=== PATIENT | female | born 1985 | race American Indian/Alaskan Native ===

== ENCOUNTER 2021-02-06 04:37 | Emergency (ER) | payer SELFPAY ==
[2021-02-06] MEDS ORDERED: SODIUM CHLORIDE 0.9% 1000 ML 1,000 ML IV ONE (04:58)
[2021-02-06] MEDS ORDERED: ONDANSETRON 4 MG/2 ML INJ IV ONE (04:58)
[2021-02-06] MEDS ORDERED: fentaNYL 100 MCG/2 ML INJ IV ONE (04:58)
--- NOTE | 2021-02-06 05:05 | Emergency Department Report ---
Chief Complaint: Abdominal Pain Stated Complaint: ABD PAIN Time Seen by Provider: 02/06/21 05:05 - HPI History of Present Illness: 35-year-old female presenting with a chief complaint of abdominal pain. The patient states for the past 2 to 3 days she has had initially intermittent right flank and right-sided abdominal pain but has now become constant. Patient admits to nausea. - Exam Vital Signs: Vital Signs 02/06/21 04:44 Temperature 99.4 F Pulse Rate 110 H Respiratory 20 Rate Blood Pressure 135/85 O2 Sat by Pulse 97 Oximetry MSE screening note: Focused history and physical exam performed. Due to findings the following was ordered: Analgesia CBC, CMP, lipase, UA, serum hCG CT abdomen pelvis IV fluids ED Disposition for MSE Condition: Stable Instructions: Abdominal Pain (ED)
[2021-02-06 05:33] LABS: Basophils # (Auto) 0.1 K/mm3 (0.0-0.1); Basophils % (Auto) 0.5 % (0.0-1.8); Eosinophils # (Auto) 0.1 K/mm3 (0.0-0.4); Eosinophils % (Auto) 0.6 % (0.0-4.3); Hematocrit 39.9 % (30.3-42.9); Hemoglobin 13.8 gm/dl (10.1-14.3); Lymphocytes # (Auto) 1.1 K/mm3 (1.2-5.4); Lymphocytes % (Auto) 9.5 % (13.4-35.0); Mean Corpuscular HGB Conc 35 % (30-34); Mean Corpuscular Volume 92 fl (79-97); Monocytes # (Auto) 1.3 K/mm3 (0.0-0.8); Monocytes % (Auto) 11.5 % (0.0-7.3); Platelet Count 339 K/mm3 (140-440); Red Blood Count 4.33 M/mm3 (3.65-5.03); Red Cell Distribution Width 12.8 % (13.2-15.2)
[2021-02-06 05:47] LABS: Alanine Aminotransferase 16 units/L (7-56); Albumin 4.7 g/dL (3.9-5); BUN/Creatinine Ratio 7; Blood Urea Nitrogen 8 mg/dL (7-17); Calcium 9.2 mg/dL (8.4-10.2); Hemolysis Index 20
[2021-02-06] MEDS ORDERED: MORPHINE 4 MG/1 ML INJ IV ONE (06:13)
--- NOTE | 2021-02-06 06:16 | Cat Scan Report ---
CT ABDOMEN AND PELVIS WITHOUT CONTRAST INDICATION: Right flank, right side abdominal pain. TECHNIQUE: Axial CT images were obtained through the abdomen and pelvis without IV contrast. All CT scans at [facility] location are performed using CT dose reduction for ALARA by means of automated exposure control. COMPARISON: None available. FINDINGS: LOWER CHEST: No significant abnormality. LIVER: No significant abnormality. GALLBLADDER: No significant abnormality. BILE DUCTS: No significant abnormality. PANCREAS: No significant abnormality. SPLEEN: No significant abnormality. ADRENALS: No significant abnormality. RIGHT KIDNEY and URETER: No significant abnormality. LEFT KIDNEY and URETER: No significant abnormality. STOMACH and SMALL BOWEL: No significant abnormality. COLON: No significant abnormality. APPENDIX: Normal. PERITONEUM: No free fluid. No free air. No fluid collection. LYMPH NODES: No significant adenopathy. AORTA and ARTERIES: No significant abnormality. IVC and VEINS: No significant abnormality. URINARY BLADDER: No significant abnormality. REPRODUCTIVE ORGANS: 4.6 cm right ovarian cyst with dependent hemorrhage. Simple 2.3 cm left ovarian cyst ADDITIONAL FINDINGS: None. SKELETAL SYSTEM: No significant abnormality. IMPRESSION: 1. Hemorrhagic 4.6 cm right ovarian cyst with small amount of adjacent free pelvic fluid 2. Simple 2.3 cm left ovarian follicular cyst 3. No urinary tract calculi or hydronephrosis Signer Name: Jacob Bronson MD Signed: 02/06/2021 6:11 AM Workstation Name: [id number]
--- NOTE | 2021-02-06 06:33 | Emergency Department Report ---
ED Abdominal Pain HPI - General Chief Complaint: Abdominal Pain Stated Complaint: ABD PAIN Time Seen by Provider: 02/06/21 05:05 Source: patient Mode of arrival: Ambulatory Limitations: No Limitations - History of Present Illness Initial Comments: Patient is a 35-year-old F Palestinian female with past medical history of polycystic ovarian syndrome ectopic status post left fallopian tube removal who is presenting with 3 days of worsening abdominal pain. States she has pain in the suprapubic region right lower quadrant right upper quadrant pain and right flank. States the pain is worsening over the last several days. States now she actually has pain also when she sits on her tailbone as well. [place] some dysuria today as well. Pain estimated at a 7 out of 10 in severity. She is accompanied with nausea but no vomiting or diarrhea. States she has some subjective chills but no objective fevers. She denies any cough cold congestion. Severity scale (0 -10): 10 - Related Data Previous Rx's Medication Instructions Recorded Last Taken Type Acetaminophen/Codeine 1 tab PO Q6H PRN #20 tab 01/13/15 Unknown Rx [Acetaminophen-Codeine #3 TAB] Acyclovir [Zovirax Cap] 200 mg PO 5XD 5 Days cap 01/13/15 Unknown Rx Clindamycin 2% [Clindamycin 2% VAG 1 applicatio VG TID 7 Days cream 01/13/15 Unknown Rx CREAM] metroNIDAZOLE [Flagyl] 500 mg PO BID #14 tablet 01/13/15 Unknown Rx Acyclovir [Zovirax Cap] 400 mg PO TID 7 Days cap 05/06/15 Unknown Rx traMADoL [Ultram] 50 mg PO Q6HR PRN #20 tablet 05/06/15 Unknown Rx Fluconazole (Nf) [Diflucan TAB] 150 mg PO ONCE #2 tablet 08/07/15 Unknown Rx Butalb/Acetaminophen/Caffeine 1 cap PO Q8HR PRN #20 cap 06/16/20 Unknown Rx [Fioricet 50-300-40 mg CAP] Ondansetron [Zofran Odt] 4 mg PO Q8HR #10 tab.rapdis 02/06/21 Unknown Rx oxyCODONE /ACETAMINOPHEN [Percocet 1 tab PO Q6HR PRN #10 tablet 02/06/21 Unknown Rx 5/325] Allergies Allergy/AdvReac Type Severity Reaction Status Date / Time ibuprofen Allergy Swelling Verified 02/06/21 04:44 ED Review of Systems ROS: Stated complaint: ABD PAIN Other details as noted in HPI Comment: All other systems reviewed and negative ED Past Medical Hx - Past Medical History Hx Diabetes: Yes (BORDERLINE) Additional medical history: ectopic , polycystic ovarian syndrome - Surgical History Additional Surgical History: Left fallopian tube removed. - Social History Smoking Status: Never Smoker Substance Use Type: None - Medications Home Medications: Home Medications Medication Instructions Recorded Confirmed Last Taken Type Acetaminophen/Codeine 1 tab PO Q6H PRN #20 tab 01/13/15 Unknown Rx [Acetaminophen-Codeine #3 TAB] Acyclovir [Zovirax Cap] 200 mg PO 5XD 5 Days cap 01/13/15 Unknown Rx Clindamycin 2% [Clindamycin 2% VAG 1 applicatio VG TID 7 Days cream 01/13/15 Unknown Rx CREAM] metroNIDAZOLE [Flagyl] 500 mg PO BID #14 tablet 01/13/15 Unknown Rx Acyclovir [Zovirax Cap] 400 mg PO TID 7 Days cap 05/06/15 Unknown Rx traMADoL [Ultram] 50 mg PO Q6HR PRN #20 tablet 05/06/15 Unknown Rx Fluconazole (Nf) [Diflucan TAB] 150 mg PO ONCE #2 tablet 08/07/15 Unknown Rx Butalb/Acetaminophen/Caffeine 1 cap PO Q8HR PRN #20 cap 06/16/20 Unknown Rx [Fioricet 50-300-40 mg CAP] Ondansetron [Zofran Odt] 4 mg PO Q8HR #10 tab.rapdis 02/06/21 Unknown Rx oxyCODONE /ACETAMINOPHEN [Percocet 1 tab PO Q6HR PRN #10 tablet 02/06/21 Unknown Rx 5/325] ED Physical Exam - General Limitations: No Limitations General appearance: alert, in distress - Head Head exam: Present: atraumatic, normocephalic - Eye Eye exam: Present: normal appearance, PERRL, EOMI - ENT ENT exam: Present: mucous membranes moist - Neck Neck exam: Present: normal inspection - Respiratory Respiratory exam: Present: normal lung sounds bilaterally. Absent: respiratory distress, wheezes, rales, rhonchi - Cardiovascular Cardiovascular Exam: Present: regular rate, normal rhythm, normal heart sounds. Absent: systolic murmur, diastolic murmur, rubs, gallop - GI/Abdominal GI/Abdominal exam: Present: soft, tenderness (Suprapubic and right lower quadrant tenderness palpation), normal bowel sounds. Absent: distended, guarding, rebound, rigid - Extremities Exam Extremities exam: Present: normal inspection - Back Exam Back exam: Present: normal inspection - Neurological Exam Neurological exam: Present: alert, oriented X3 - Psychiatric Psychiatric exam: Present: normal affect, normal mood - Skin Skin exam: Present: warm, dry, intact, normal color. Absent: rash ED Course Vital Signs 02/06/21 02/06/21 04:44 06:30 Temperature 99.4 F Pulse Rate 110 H 91 H Respiratory 20 15 Rate Blood Pressure 135/85 O2 Sat by Pulse 97 Oximetry ED Medical Decision Making - Lab Data Result diagrams: 02/06/21 05:10 02/06/21 05:10 - Radiology Data Patient: REECE ESCOBRA MR#: [id number] : 1985 Acct:[id number] Age/Sex: 35 / F ADM Date: 02/06/21 Loc: ED Attending Dr: Ordering Physician: SHERRY FORBES MD Date of Service: 02/06/21 Procedure(s): CT abdomen pelvis wo con Accession Number(s): [id number] cc: SHERRY FORBES MD CT ABDOMEN AND PELVIS WITHOUT CONTRAST INDICATION: Right flank, right side abdominal pain. TECHNIQUE: Axial CT images were obtained through the abdomen and pelvis without IV contrast. All CT scans at this location are performed using CT dose reduction for ALARA by means of automated exposure control. COMPARISON: None available. FINDINGS: LOWER CHEST: No significant abnormality. LIVER: No significant abnormality. GALLBLADDER: No significant abnormality. BILE DUCTS: No significant abnormality. PANCREAS: No significant abnormality. SPLEEN: No significant abnormality. ADRENALS: No significant abnormality. RIGHT KIDNEY and URETER: No significant abnormality. LEFT KIDNEY and URETER: No significant abnormality. STOMACH and SMALL BOWEL: No significant abnormality. COLON: No significant abnormality. APPENDIX: Normal. PERITONEUM: No free fluid. No free air. No fluid collection. LYMPH NODES: No significant adenopathy. AORTA and ARTERIES: No significant abnormality. IVC and VEINS: No significant abnormality. URINARY BLADDER: No significant abnormality. REPRODUCTIVE ORGANS: 4.6 cm right ovarian cyst with dependent hemorrhage. Simple 2.3 cm left ovarian cyst ADDITIONAL FINDINGS: None. SKELETAL SYSTEM: No significant abnormality. IMPRESSION: 1. Hemorrhagic 4.6 cm right ovarian cyst with small amount of adjacent free pelvic fluid 2. Simple 2.3 cm left ovarian follicular cyst 3. No urinary tract calculi or hydronephrosis Signer Name: Jacob Bronson MD Signed: 02/06/2021 6:11 AM Workstation Name: [id number] Transcribed By: TL Dictated By: Jacob Bronson MD Electronically Authenticated By: Jacob Bronson MD Signed Date/Time: 02/06/21 0611 Critical care attestation.: If time is entered above; I have spent that time in minutes in the direct care of this critically ill patient, excluding procedure time. ED Disposition Clinical Impression: Hemorrhagic ovarian cyst Disposition: - TO HOME OR SELFCARE Is pt being admited?: No Does the pt Need Aspirin: No Condition: Stable Instructions: Abdominal Pain (ED), Ovarian Cyst, [id number] Referrals: MICHELE ACOSTA MD [Staff Physician] - 3-5 Days Time of Disposition: 06:57
[2021-02-06 07:09] VITALS: BP 134/73
== END 2021-02-06 07:09 | disposition home or self-care (01) ==
LOC: ED 04:37
DX: N83.209 Unspecified ovarian cyst, unspecified side (principal); Z79.899 Other long term (current) drug therapy; Z88.6 Allergy status to analgesic agent; Z98.890 Other specified postprocedural states
CPT/HCPCS: 36415; 74176; 80053; 83690; 84703; 85025; 96361; 96374; 96375; 99284; J2270; J2405; J3010; J7030

== ENCOUNTER 2021-02-08 09:10 | Inpatient (IN) | payer OTHER ==
[2021-02-08] MEDS ORDERED: SODIUM CHLORIDE 0.9% 500 ML 500 ML IV ONE ×2 (09:18→11:51)
[2021-02-08 09:41] LABS: Hematocrit 36.3 % (30.3-42.9); Hemoglobin 12.5 gm/dl (10.1-14.3); Mean Corpuscular HGB Conc 34 % (30-34); Mean Corpuscular Volume 92 fl (79-97); Platelet Count 287 K/mm3 (140-440); Red Blood Count 3.94 M/mm3 (3.65-5.03); Red Cell Distribution Width 12.9 % (13.2-15.2)
[2021-02-08 09:57] LABS: Alanine Aminotransferase 9 units/L (7-56); Albumin 3.8 g/dL (3.9-5); BUN/Creatinine Ratio 9; Blood Urea Nitrogen 8 mg/dL (7-17); Calcium 9.3 mg/dL (8.4-10.2); Hemolysis Index 1
--- NOTE | 2021-02-08 10:03 | XRay Report ---
CHEST 1 VIEW 02/08/2021 8:52 AM INDICATION / CLINICAL INFORMATION: possible Sepsis. COMPARISON: None available. FINDINGS: SUPPORT DEVICES: None. HEART / MEDIASTINUM: No significant abnormality. LUNGS / PLEURA: Mild linear pulmonary opacity in the right lung base. No pleural effusion. No pneumot horax. ADDITIONAL FINDINGS: No significant additional findings. IMPRESSION: 1. Linear opacity right lung base may represent atelectasis versus infectious process given the patie nt's clinical history. Signer Name: Nicanor Hughes MD Signed: 02/08/2021 9:58 AM Workstation Name: [id number]
[2021-02-08] MEDS ORDERED: ACETAMINOPHEN 500 MG TAB PO ONE (10:18)
[2021-02-08] MEDS ORDERED: MORPHINE 2 MG/1 ML INJ IV ONE (10:25)
--- NOTE | 2021-02-08 10:30 | Emergency Department Report ---
ED Abdominal Pain HPI - General Chief Complaint: Abdominal Pain Stated Complaint: OVARIAN CYST/SEEN HER SATURDAY FOR SAME Time Seen by Provider: 02/08/21 10:12 Source: patient Mode of arrival: Wheelchair Limitations: No Limitations - History of Present Illness Initial Comments: 35-year-old female presents to ED with abdominal pain. Patient presented to ED 2 days ago with right lower quadrant pain. She was diagnosed with a hemorrhagic ovarian cyst. Patient denies any vaginal bleeding or discharge at that time. Patient states last night she began spiking a fever of 102 degrees. Patient also noticed a white, foul-smelling vaginal discharge. Patient states since this morning, the vaginal discharge is now bloody. Patient states pain is more generalized over her abdomen. Upon discharge, patient states she was advised to follow-up with CUSTOMS AND IMMIGRATION OFFICER. States she did schedule an appointment with a new CD MIXER HELPER but appointment is not until February 23. MD Complaint: abdominal pain -: days(s) (3) Location: diffuse Radiation: none Migration to: no migration Severity: severe Severity scale (0 -10): 8 Quality: cramping, sharp Consistency: constant Improves With: nothing Worsens With: movement Associated Symptoms: fever - Related Data Home Medications Medication Instructions Recorded Confirmed Last Taken No Known Home Medications [No 02/08/21 02/08/21 Unknown Reported Home Medications] Allergies Allergy/AdvReac Type Severity Reaction Status Date / Time ibuprofen Allergy Swelling Verified 02/08/21 09:56 ED Review of Systems ROS: Stated complaint: OVARIAN CYST/SEEN HER SATURDAY FOR SAME Other details as noted in HPI Comment: All other systems reviewed and negative Constitutional: fever Gastrointestinal: abdominal pain. denies: nausea, vomiting Genitourinary: discharge ED Past Medical Hx - Past Medical History Hx Diabetes: Yes (BORDERLINE) Additional medical history: ectopic , polycystic ovarian syndrome - Surgical History Additional Surgical History: Left fallopian tube removed. - Social History Smoking Status: Never Smoker Substance Use Type: None - Medications Home Medications: Home Medications Medication Instructions Recorded Confirmed Last Taken Type No Known Home Medications [No 02/08/21 02/08/21 Unknown History Reported Home Medications] ED Physical Exam - General Limitations: No Limitations General appearance: alert, in no apparent distress - Head Head exam: Present: atraumatic, normocephalic - Eye Eye exam: Present: normal appearance, EOMI - ENT ENT exam: Present: mucous membranes moist - Neck Neck exam: Present: normal inspection - Respiratory Respiratory exam: Present: normal lung sounds bilaterally. Absent: respiratory distress - Cardiovascular Cardiovascular Exam: Present: normal rhythm, tachycardia - GI/Abdominal GI/Abdominal exam: Present: soft, tenderness (diffuse abdomen), guarding. Absent: distended - External exam: Present: normal external exam Speculum exam: Present: vaginal discharge (whitish), vaginal bleeding (moderate) Bi-manual exam: Present: cervical motion tendernes, adnexal tenderness, uterine tenderness - Extremities Exam Extremities exam: Present: normal inspection - Neurological Exam Neurological exam: Present: alert, oriented X3 - Psychiatric Psychiatric exam: Present: normal affect, normal mood - Skin Skin exam: Present: warm, dry, intact, normal color ED Course Vital Signs 02/08/21 02/08/21 02/08/21 09:11 09:49 12:02 Temperature 101.4 F H Pulse Rate 125 H 113 H 101 H Respiratory 26 H 18 18 Rate Blood Pressure 125/73 Blood Pressure 134/71 111/62 [Right] O2 Sat by Pulse 96 97 99 Oximetry 02/08/21 12:58 Temperature 98.1 F Pulse Rate 97 H Respiratory 17 Rate Blood Pressure Blood Pressure 130/95 [Right] O2 Sat by Pulse 99 Oximetry - Consultations Consultation #1: 02/08/21 12:[address] Branch. Recommends adding clindamycin 900 mg IV. States she will admit the patient to the mother-baby. ED Medical Decision Making - Lab Data Result diagrams: 02/08/21 09:22 02/08/21 09:22 - EKG Data -: EKG Interpreted by Ut EKG shows normal: sinus rhythm, axis, intervals, QRS complexes, ST-T waves Rate: normal - EKG Data Interpretation: no acute changes - Radiology Data Radiology results: report reviewed, image reviewed - Medical Decision Making 35-year-old female presents to ED with abdominal pain. Patient was seen 2 days ago, underwent noncontrast CT scan which showed hemorrhagic ovarian cyst. Patient returns today after developing fever. WBCs currently increased from 11 to 22. Lactic acid normal. Patient has CMT, adnexal, and uterine tenderness. Vaginal bleeding on exam. CT scan today with contrast shows 9 cm right tubo- ovarian abscess. IV Zosyn and clindamycin given. Fever and tachycardia improved. Pain improved following morphine. Patient will be admitted to certified dialysis technician, Dr. Branch. - Differential Diagnosis TOA, PID, cyst, UTI Critical care attestation.: If time is entered above; I have spent that time in minutes in the direct care of this critically ill patient, excluding procedure time. ED Disposition Clinical Impression: Right tubo-ovarian abscess, Sepsis Disposition: OP ADMIT IP TO THIS HOSP Is pt being admited?: Yes Condition: Stable Time of Disposition: 12:25
[2021-02-08] MEDS ORDERED: PIPERACIL/TAZOBACTA 4.5/NS 100 4.5 GM/100 ML VIAL IV ONE (10:33)
[2021-02-08 12:01] LABS: INR 1.14 (0.87-1.13)
--- NOTE | 2021-02-08 12:17 | Cat Scan Report ---
CT ABDOMEN AND PELVIS WITH CONTRAST INDICATION / CLINICAL INFORMATION: MAIN. Fever and diffuse abdominal pain. Right hemorrhagic cyst. TECHNIQUE: Axial CT images were obtained through the abdomen and pelvis after IV contrast. All CT scans at this location are performed using CT dose reduction for ALARA by means of automated exposure control. COMPARISON: CT abdomen and pelvis without contrast dated 02/06/2021 FINDINGS: LOWER CHEST: Interval development of moderate bibasilar linear atelectasis. LIVER: Tiny hypoattenuating lesion right hepatic lobe stable since prior exam. GALLBLADDER: No significant abnormality. BILE DUCTS: No significant abnormality. PANCREAS: No significant abnormality. SPLEEN: No significant abnormality. ADRENALS: No significant abnormality. RIGHT KIDNEY / URETER: No significant abnormality. LEFT KIDNEY / URETER: No significant abnormality. STOMACH / SMALL BOWEL: No significant abnormality. COLON: No significant abnormality. APPENDIX: No significant abnormality. PERITONEUM: Mild free fluid in the pelvis. No free air. No complex fluid collection. LYMPH NODES: No significant adenopathy. AORTA / ARTERIES: No significant abnormality. IVC / VEINS: No significant abnormality. URINARY BLADDER: No significant abnormality. REPRODUCTIVE ORGANS: 2.7 cm uterine fibroid is noted. Complex fluid filled and dilated tubular struct ure in the right adnexa measuring 9 cm with surrounding inflammatory changes and fat stranding. This structure was visualized on the prior exam, however incompletely characterized without contrast on . Simple left ovarian cyst measures 3.2 cm. ADDITIONAL FINDINGS: None. SKELETAL SYSTEM: No significant abnormality. No aggressive osseous lesion. IMPRESSION: 1. Right tubo-ovarian abscess measures 9 cm with significant surrounding inflammatory changes and fat stranding. Correlate for clinical history of pelvic infiltrative disease. 2. Interval development of moderate bibasilar atelectasis. Signer Name: Nicanor Hughes MD Signed: 02/08/2021 12:12 PM Workstation Name: [id number]
[2021-02-08 12:49] LABS: Bilirubin,Urine NEG (Negative); Blood,Urine LG (Negative); Color,Urine Amber (Yellow); Mucus,Urine FEW /HPF; Urobilinogen,Urine < 2.0 mg/dL (<2.0)
[2021-02-08 12:55] LABS: RBC,Urine > 182.0 /HPF (0.0-6.0)
--- NOTE | 2021-02-08 13:40 | History and Physical Report ---
History of Present Illness Date of examination: 02/08/21 Date of admission: 02/08/21 12:26 Chief complaint: Abdominal pain History of present illness: 35-year-old -0-1-0 with right-sided abdominal pain for the last 72 hours. Patient had a work-up [facility] on Saturday with a right hemorrhagic cyst at 4.5 cm, she was discharged home and in the last 24 hours has progressed to nausea vomiting fever 201.4 and chills. Work-up in the emergency room today revealed a right tubo-ovarian abscess at approximately 9 cm per verbal read. Patient admits to having history of a right ectopic and a history of left hydrosalpinx. She has had extensive work-up at [facility] to include 2 laparoscopies. She she admits to having operative laparoscopy with left salpingectomy for an ectopic , and a diagnostic laparoscopy for pelvic pain with a diagnosis of right uterine fibroid. I do not have access to op report and medical records. Patient also admits to a whitish-greenish vaginal discharge that is blood- tinged. Patient's past medical history significant for HIV. She admits her last viral load was undetectable 1 month ago. She is on antiretroviral medication which her is bringing to the hospital. I written a communication order for her to continue her home HIV medications. Past History Past Medical History: other (HIV) Past Surgical History: other (Laparoscopy x2 with right salpingectomy) PAPER COUNTER History: fibroids, HIV Family/Genetic History: none Social history: Medications and Allergies Allergies Allergy/AdvReac Type Severity Reaction Status Date / Time ibuprofen Allergy Swelling Verified 02/08/21 09:56 Home Medications Medication Instructions Recorded Confirmed Last Taken Type No Known Home Medications [No 02/08/21 02/08/21 Unknown History Reported Home Medications] Active Meds: HIV antiretroviral medications from home Review of Systems All systems: negative (Fever chills abdominal pain vaginal discharge with nausea vomiting) - Vital Signs Vital signs: Vital Signs Temp Pulse Resp BP Pulse Ox 101.4 F H 125 H 26 H 125/73 96 02/08/21 09:11 02/08/21 09:11 02/08/21 09:11 02/08/21 09:11 02/08/21 09:11 Temp Pulse Resp BP Pulse Ox 98.1 F 97 H 17 130/95 99 02/08/21 12:58 02/08/21 12:58 02/08/21 12:58 02/08/21 12:58 02/08/21 12:58 - Physical Exam Breasts: Positive: normal Cardiovascular: Other (Tachycardia) Lungs: Positive: Clear to auscultation Abdomen: Positive: normal appearance, soft, tenderness, normal bowel sounds (Patient has tenderness in the right lower quadrant to deep palpation with mild peritoneal signs) Genitourinary (Female): Positive: normal external genitalia Vagina: Positive: normal moisture, discharge, other (Pelvic exam done by ER physician noted for positive discharge) Uterus: Positive: normal size Extremities: Positive: normal Deep Tendon Reflex Grade: Normal +2 Results Result Diagrams: 02/08/21 09:22 02/08/21 09:22 Abnormal lab results 02/08/21 02/08/21 02/08/21 Range/Units 09:22 09:22 09:22 WBC 22.8 H (4.5-11.0) K/mm3 RDW 12.9 L (13.2-15.2) % INR 1.14 H (0.87-1.13) VBG pH (7.320-7.420) Sodium 134 L (137-145) mmol/L Glucose 151 H (65-100) mg/dL Albumin 3.8 L (3.9-5) g/dL Ur Specific [place] (1.003-1.030) Urine WBC (Auto) (0.0-6.0) /HPF U Epithel Cells (Auto) (0-13.0) /HPF 02/08/21 02/08/21 Range/Units 09:22 12:01 WBC (4.5-11.0) K/mm3 RDW (13.2-15.2) % INR (0.87-1.13) VBG pH 7.448 H (7.320-7.420) Sodium (137-145) mmol/L Glucose (65-100) mg/dL Albumin (3.9-5) g/dL Ur Specific [place] 1.046 H (1.003-1.030) Urine WBC (Auto) 8.0 H (0.0-6.0) /HPF U Epithel Cells (Auto) 20.0 H (0-13.0) /HPF All other labs normal. Assessment and Plan Right tubo-ovarian abscess with pelvic pain HIV Plan Clear liquid diet Triple antibiotics Morphine and oral pain medicine as needed HIV antiretrovirals to be taken from home medication, to bring them in Antibiotics for 24 hours if no improvement plan for operative management Plan of care was discussed with patient We will attempt to get medical records from [place] Branch MD
[2021-02-08] MEDS ORDERED: GENTAMICIN/NS 80 MG/100 ML 100 ML IV SCH (14:00)
[2021-02-08 15:00] LABS: Amphetamine Screen,Urine Negative; Benzodiazepines Screen,Urine Negative; Cannabinoid Screen,Urine Negative; Methadone Screen,Urine Negative
[2021-02-08] MEDS ORDERED: GENTAMICIN/NS 120MG/100ML 120 MG/100 ML BAG IV SCH (15:00)
[2021-02-08 15:12] LABS: Cocaine Screen,Urine Positive; Opiate Screen,Urine Positive
[2021-02-08] MEDS: MORPHINE 4 MG/1 ML INJ IV PRN ×2 (15:32→21:15)
[2021-02-08 16:03] LABS: RBC Morphology Normal; Total Cells Counted 100
[2021-02-08] MEDS: ACETAMINOPHEN 500 MG TAB PO PRN ×2 (17:47→23:26)
[2021-02-08] MEDS: D5W/LACTATED RINGERS 1,000 ML IV SCH (23:25)
[2021-02-09] MEDS: MORPHINE 4 MG/1 ML INJ IV PRN ×3 (01:43→16:09)
[2021-02-09] MEDS: GENTAMICIN 400 MG in SODIUM CHLORIDE 0.9% 100 ML IV SCH (10:14)
--- NOTE | 2021-02-09 11:17 | Electrocardiograph Report ---
[facility], [place] Test Date: 2021-02-08 Test Time: 10:06:16 Pat Name: REECE ESCOBAR Department: Room: 2103 Gender: F Inspector Dials: DERREK : 1985 Requested By: ELIZABETH LUCIANO Order Number: [id number] Reading MD: Phani Mejia Measurements Intervals [place] Rate: 105 P: 69 WI: 131 QRS: 45 QRSD: 79 T: 42 QT: 295 QTc: 391 Interpretive Statements Sinus tachycardia No previous ECG available for comparison Electronically Signed On 02-09-2021 8:17:12 PDT by Phani Mejia
[2021-02-09 11:38] LABS: Alanine Aminotransferase 11 units/L (7-56); Albumin 3.4 g/dL (3.9-5); BUN/Creatinine Ratio 5; Blood Urea Nitrogen 5 mg/dL (7-17); Calcium 8.8 mg/dL (8.4-10.2); Hemolysis Index 2
[2021-02-09 11:56] LABS: Erythrocyte Sedimentation Rate 53 mm/Hr (0-20)
[2021-02-09 12:01] LABS: Basophils % (Auto) 0.2 % (0.0-1.8); Eosinophils % (Auto) 0.2 % (0.0-4.3); Hematocrit 32.3 % (30.3-42.9); Lymphocytes # (Auto) 1.8 K/mm3 (1.2-5.4); Lymphocytes % (Auto) 11.1 % (13.4-35.0); Mean Corpuscular HGB Conc 34 % (30-34); Mean Corpuscular Volume 93 fl (79-97); Monocytes # (Auto) 1.6 K/mm3 (0.0-0.8); Monocytes % (Auto) 9.8 % (0.0-7.3); Platelet Count 287 K/mm3 (140-440); Red Blood Count 3.47 M/mm3 (3.65-5.03); Red Cell Distribution Width 12.8 % (13.2-15.2)
[2021-02-09] MEDS: ONDANSETRON 4 MG/2 ML INJ IV PRN ×2 (12:56→17:32)
[2021-02-09] MEDS: D5W/LACTATED RINGERS 1,000 ML IV SCH ×2 (12:57→20:36)
--- NOTE | 2021-02-09 13:31 | Progress Note ---
Assessment and Plan Tubo-ovarian abscess Patient has improved with a decreasing leukocytosis and bandemia Plan to continue current triple antibiotic regimen with pain medicine as needed Zofran for nausea Will obtain medical records from [place] to compare CT scans. Patient was told she had a history of a right hydrosalpinx and has had persistent complex cyst in the past. While this appears to be new onset right-sided tubo-ovarian abscess, patient may have a chronic infectious process. HIV stable We will continue to monitor closely Nestor Branch MD Subjective - Subjective Date of service: 02/09/21 Interval history: 35-year-old -0-1-0 with right-sided abdominal pain with suspicion for right tubo-ovarian abscess on CT scan of admission. At bedside patient has nausea vomiting related to her IV antibiotics. She indicates that her pain is a 7 out of 10 and last received morphine at 730 this morning She is otherwise awake alert and oriented x3 and answering questions appropriately She is on a clear liquid diet until just recently was tolerating p.o. appropriately. Patient has not had a bowel movement in over 4 days. Patient reports: pain poorly controlled, nauseated Objective - Vital Signs Latest vital signs: Vital Signs Temp Pulse Resp BP BP Pulse Ox 02/09/21 08:00 97.9 F 110 H 18 116/76 95 02/09/21 07:45 20 02/09/21 01:01 102.8 F H 111 H 20 118/65 95 02/08/21 20:45 102.8 F H 113 H 20 126/64 99 02/08/21 16:24 100.4 F H 111 H 20 109/71 100 02/08/21 13:45 98.6 F 105 H 20 115/65 Intake and Output 02/08/21 02/09/21 02/09/21 23:59 07:59 15:59 Intake Total 840 1000 Output Total 200 300 Balance 640 700 Intake: IV 1000 D5lr 1,000 ml @ 125 mls/ 1000 hr IV [facility] Rx#: [id number] Oral 600 Intake, Free Water 240 Output: Urine 200 300 Void 200 300 Other: Total, Intake Amount 120 Total, Output Amount 200 300 Voiding Method Bedside Commode Bedside Commode # Voids Void 2 - Exam Breasts: Present: deferred Cardiovascular: Present: Other (Tachycardia) Lungs: Present: Clear to auscultation Abdomen: Present: soft, tenderness, guarding Extremities: Present: normal Deep Tendon Reflex Grade: Normal but brisk +3 - Labs Labs: Abnormal lab results 02/08/21 02/08/21 02/09/21 Range/Units 09:22 13:44 10:49 WBC 16.4 H (4.5-11.0) K/mm3 RBC 3.47 L (3.65-5.03) M/mm3 RDW 12.8 L (13.2-15.2) % Lymph % (Auto) 11.1 L (13.4-35.0) % [place] % (Auto) 9.8 H (0.0-7.3) % [place] # (Auto) 1.6 H (0.0-0.8) K/mm3 Seg Neutrophils % 78.7 H (40.0-70.0) % Seg Neuts % (Manual) 87.0 H (40.0-70.0) % Lymphocytes % (Manual) 6.0 L (13.4-35.0) % Seg Neutrophils # 12.9 H (1.8-7.7) K/mm3 Seg Neutrophils # Man 19.8 H (1.8-7.7) K/mm3 Monocytes # (Manual) 1.6 H (0.0-0.8) K/mm3 Sodium (137-145) mmol/L Potassium (3.6-5.0) mmol/L BUN (7-17) mg/dL Glucose (65-100) mg/dL Lactic Acid 0.60 L (0.7-2.0) mmol/L Albumin (3.9-5) g/dL 02/09/21 Range/Units 10:49 WBC (4.5-11.0) K/mm3 RBC (3.65-5.03) M/mm3 RDW (13.2-15.2) % Lymph % (Auto) (13.4-35.0) % [place] % (Auto) (0.0-7.3) % [place] # (Auto) (0.0-0.8) K/mm3 Seg Neutrophils % (40.0-70.0) % Seg Neuts % (Manual) (40.0-70.0) % Lymphocytes % (Manual) (13.4-35.0) % Seg Neutrophils # (1.8-7.7) K/mm3 Seg Neutrophils # Man (1.8-7.7) K/mm3 Monocytes # (Manual) (0.0-0.8) K/mm3 Sodium 134 L (137-145) mmol/L Potassium 3.5 L (3.6-5.0) mmol/L BUN 5 L (7-17) mg/dL Glucose 125 H (65-100) mg/dL Lactic Acid (0.7-2.0) mmol/L Albumin 3.4 L (3.9-5) g/dL
[2021-02-09] MEDS: ACETAMINOPHEN 500 MG TAB PO PRN ×2 (13:55→20:37)
[2021-02-09] MEDS: HYDROcodone/ACETAMINOPHEN 10-325MG TAB PO PRN (17:31)
[2021-02-10] MEDS: MORPHINE 4 MG/1 ML INJ IV PRN ×4 (03:02→20:11)
[2021-02-10] MEDS: ONDANSETRON 4 MG/2 ML INJ IV PRN ×3 (04:12→20:10)
[2021-02-10] MEDS: D5W/LACTATED RINGERS 1,000 ML IV SCH ×2 (05:30→23:51)
[2021-02-10] MEDS: ACETAMINOPHEN 500 MG TAB PO PRN (05:31)
[2021-02-10 08:49] LABS: Basophils % (Auto) 0.3 % (0.0-1.8); Eosinophils % (Auto) 0.1 % (0.0-4.3); Hematocrit 30.8 % (30.3-42.9); Hemoglobin 10.4 gm/dl (10.1-14.3); Lymphocytes # (Auto) 1.4 K/mm3 (1.2-5.4); Lymphocytes % (Auto) 10.3 % (13.4-35.0); Mean Corpuscular HGB Conc 34 % (30-34); Mean Corpuscular Volume 92 fl (79-97); Monocytes # (Auto) 1.6 K/mm3 (0.0-0.8); Monocytes % (Auto) 11.8 % (0.0-7.3); Platelet Count 309 K/mm3 (140-440); Red Blood Count 3.34 M/mm3 (3.65-5.03); Red Cell Distribution Width 12.5 % (13.2-15.2)
[2021-02-10] MEDS: GENTAMICIN 400 MG in SODIUM CHLORIDE 0.9% 100 ML IV SCH (10:14)
[2021-02-10] MEDS: HYDROcodone/ACETAMINOPHEN 10-325MG TAB PO PRN (13:49)
[2021-02-10] MEDS: AMPICILLIN/NS 2 GM/100 ML 2 GM/100 ML BAG IV SCH ×2 (16:30→23:50)
--- NOTE | 2021-02-10 18:31 | Event Note ---
Date: 02/10/[address] Xiong about the patient with tubo-ovarian abscess and hx of pelvic surgeries and hx of HIV. No clinical indication for general surgery consultation. Will be available to assist in OR when scheduled.
--- NOTE | 2021-02-10 19:33 | Progress Note ---
Assessment and Plan HD#3 TOA with inadequate coverage, however leucocytosis much improved; HIV+; Substance abuse with cocaine 1. Discussed with Dr. Branch her sign out who believed pt was on amp/gent/clinda; antibiotic meds adjusted with addition of ampicillin 2. Consult done to hospitalist for HIV mgt and meds that pt states she has been taking and viral load undetectable 3. Discussed at length plan of care for interventional radiology to drain abcess preferably if pt stable, but this service is only available during the week and order placed; however if symptoms worsen or patient shows signs of acute abdomen and/or sepsis, surgical management for drainage of abcess will be done 4. Consult done to general surgery to assist with pt having multiple surgeries in the past and anticipate extensive scarring. Will add minilap with drainage of TOA in am if condition worsening. Lab values show improvement with WBC now 13 without bandemia and blood culture negative 5. Serial exams during the night All questions encouraged and answered Subjective Date of service: 02/10/21 Principal diagnosis: HD#3 with TOA Interval history: pt denies vomiting but still has intermittent nausea. Pt believes she feels a little better but has to lie on her side for comfort. Partner to bedside believes the patient is not doing better and conversed with her about needing surgery. pt wants to wait and get drainage prior to surgery if possible. Pt has pressure when she voids or passes gas. pt has not had BM. Nurse states pt had only one fever today. nurse also called me stating pt was only on gent and clinda and no other antibiotic med. Objective - Constitutional Vitals: Vital Signs - 12hr 02/10/21 02/10/21 02/10/21 09:08 13:24 16:43 Temperature 98.8 F 100.0 F H 99.0 F Pulse Rate 98 H 103 H 90 Respiratory 18 18 18 Rate Blood Pressure 118/77 137/77 125/76 O2 Sat by Pulse 93 94 97 Oximetry General appearance: Present: no acute distress - Respiratory Respiratory effort: other (pt has heavy breathing when she turns in bed and repositions herself) - Breasts Breasts: normal - Cardiovascular Rhythm: regular Extremities: no ischemia - Gastrointestinal General gastrointestinal: Present: tender (diffusely without rebound) - Genitourinary Female genitourinary: other (perineal pad with scant dark brown secretion withou t odor) - Neurologic Neurologic: moves all extremities - Psychiatric Psychiatric: cooperative - Labs CBC & Chem 7: 02/10/21 07:27 02/09/21 10:49 Labs: Abnormal lab results 02/10/21 02/10/21 Range/Units 07:27 07:27 WBC 13.7 H (4.5-11.0) K/mm3 RBC 3.34 L (3.65-5.03) M/mm3 RDW 12.5 L (13.2-15.2) % Lymph % (Auto) 10.3 L (13.4-35.0) % [place] % (Auto) 11.8 H (0.0-7.3) % [place] # (Auto) 1.6 H (0.0-0.8) K/mm3 Seg Neutrophils % 77.5 H (40.0-70.0) % Seg Neutrophils # 10.6 H (1.8-7.7) K/mm3 C-Reactive Protein 31.70 H (0.00-1.30) mg/dL Medications & Allergies - Medications Allergies/Adverse Reactions: Allergies ibuprofen Allergy (Verified 02/08/21 09:56) Swelling Home Medications: Home Medications Medication Instructions Recorded Confirmed Last Taken Type No Known Home Medications [No 02/08/21 02/10/21 Unknown History Reported Home Medications] Active Medications: Generic Name Dose Route Start Last Admin Trade Name Reynaldoq PRN Reason Stop Dose Admin Acetaminophen 1,000 mg 02/08/21 14:00 02/10/21 05:31 Acetaminophen 500 Mg Tab PO 1,000 mg Q6H PRN Administration Fever >101 Hydrocodone Bitart/Acetaminophen 1 each 02/08/21 14:00 02/10/21 13:49 Hydrocodone/Acetaminophen 10-325mg Tab PO 1 each Q4H PRN Administration Pain, Moderate (4-6) Clindamycin HCl 900 mg in 50 mls @ 100 mls/hr 02/08/21 21:00 02/10/21 13:31 Cleocin 900 Mg/50 Ml IV 100 mls/hr Q8H CARMELITA Administration Protocol Gentamicin Sulfate/Sodium Chloride 100 mls @ 200 mls/hr 02/08/21 14:00 02/08/21 15:32 Gentamicin/Ns 80 Mg/100 Ml IV 200 mls/hr PKCONSULT CARMELITA Administration Protocol Dextrose/Lactated Ringer's 1,000 mls @ 125 mls/hr 02/08/21 14:00 02/10/21 05:30 D5lr IV 125 mls/hr DIRECT CARMELITA Administration Gentamicin Sulfate 400 mg/ 110 mls @ 200 mls/hr 02/09/21 10:00 02/10/21 10:14 Sodium Chloride IV 200 mls/hr Q24HR CARMELITA Administration Ampicillin Sodium 2 gm in 100 mls @ 100 mls/hr 02/10/21 17:00 02/10/21 16:30 Ampicillin/Ns 2 Gm/100 Ml IV 02/12/21 11:59 100 mls/hr Q6H CARMELITA Administration Protocol Morphine Sulfate 4 mg 02/08/21 14:00 02/10/21 16:31 Morphine 4 Mg/1 Ml Inj IV 4 mg Q4H PRN Administration Pain , Severe (7-10) Ondansetron HCl 8 mg 02/09/21 12:52 02/10/21 10:14 Ondansetron 4 Mg/2 Ml Inj IV 8 mg Q4H PRN Administration Nausea And Vomiting
--- NOTE | 2021-02-10 20:25 | Consultation ---
History of Present Illness - Reason for Consult Consult date: 02/10/21 Medical management Requesting physician: CATHLEEN MONROE - History of Present Illness 35-year-old female admitted for right tubo-ovarian abscess on IV antibiotics. Patient has a history of HIV on Genvoya once a day.On IV abx. Past History Past Medical History: HIV/AIDS Social history: Family history: hypertension Medications and Allergies Allergies Allergy/AdvReac Type Severity Reaction Status Date / Time ibuprofen Allergy Swelling Verified 02/08/21 09:56 Home Medications Medication Instructions Recorded Confirmed Last Taken Type Genvoya Tablet 10 mg PO Q24HR 02/10/21 02/10/21 02/10/21 15:00 History 10 mg Active Meds: Active Medications Acetaminophen (Acetaminophen 500 Mg Tab) 1,000 mg PO Q6H PRN PRN Reason: Fever >101 Last Admin: 02/10/21 05:31 Dose: 1,000 mg Documented by: Hydrocodone Bitart/Acetaminophen (Hydrocodone/Acetaminophen 10-325mg Tab) 1 each PO Q4H PRN PRN Reason: Pain, Moderate (4-6) Last Admin: 02/10/21 13:49 Dose: 1 each Documented by: Clindamycin HCl (Cleocin 900 Mg/50 Ml) 900 mg in 50 mls @ 100 mls/hr IV Q8H CARMELITA; Protocol Last Admin: 02/10/21 13:31 Dose: 100 mls/hr Documented by: Gentamicin Sulfate/Sodium Chloride (Gentamicin/Ns 80 Mg/100 Ml) 100 mls @ 200 mls/hr IV PKCONSULT CARMELITA; Protocol Last Admin: 02/08/21 15:32 Dose: 200 mls/hr Documented by: Dextrose/Lactated Ringer's (D5lr) 1,000 mls @ 125 mls/hr IV DIRECT CARMELITA Last Admin: 02/10/21 05:30 Dose: 125 mls/hr Documented by: Gentamicin Sulfate 400 mg/ (Sodium Chloride) 110 mls @ 200 mls/hr IV Q24HR CARMELITA Last Admin: 02/10/21 10:14 Dose: 200 mls/hr Documented by: Ampicillin Sodium (Ampicillin/Ns 2 Gm/100 Ml) 2 gm in 100 mls @ 100 mls/hr IV Q6H CARMELITA; Protocol Stop: 02/12/21 11:59 Last Admin: 02/10/21 16:30 Dose: 100 mls/hr Documented by: Miscellaneous Medication (Genvoya Tablet) 10 mg PO Q24HR CAR[facility] Morphine Sulfate (Morphine 4 Mg/1 Ml Inj) 4 mg IV Q4H PRN PRN Reason: Pain , Severe (7-10) Last Admin: 02/10/21 20:11 Dose: 4 mg Documented by: Ondansetron HCl (Ondansetron 4 Mg/2 Ml Inj) 8 mg IV Q4H PRN PRN Reason: Nausea And Vomiting Last Admin: 02/10/21 20:10 Dose: 8 mg Documented by: Review of Systems All systems: negative Gastrointestinal: abdominal pain Exam - Constitutional Vitals: Temp Pulse Resp BP Pulse Ox 99.0 F 90 14 125/76 97 02/10/21 16:43 02/10/21 16:43 02/10/21 20:11 02/10/21 16:43 02/10/21 16:43 General appearance: Present: no acute distress, well-nourished - EENT Eyes: Present: PERRL ENT: hearing intact, clear oral mucosa - Neck Neck: Present: supple, normal ROM - Respiratory Respiratory effort: normal Respiratory: bilateral: CTA - Cardiovascular Heart rate: 78 Rhythm: regular Heart Sounds: Present: S1 & S2. Absent: rub, click - Extremities Extremities: pulses symmetrical, No edema Peripheral Pulses: within normal limits - Abdominal General gastrointestinal: Present: soft, non-tender, non-distended, normal bowel sounds Female genitourinary: Present: normal - Integumentary Integumentary: Present: clear, warm, dry - Musculoskeletal Musculoskeletal: gait normal, strength equal bilaterally - Psychiatric Psychiatric: appropriate mood/affect, intact judgment & insight - Neurologic Neurologic: CNII-XII intact, moves all extremities Results - Labs CBC & Chem 7: 02/10/21 07:27 02/09/21 10:49 Labs: Abnormal lab results 02/10/21 02/10/21 Range/Units 07:27 07:27 WBC 13.7 H (4.5-11.0) K/mm3 RBC 3.34 L (3.65-5.03) M/mm3 RDW 12.5 L (13.2-15.2) % Lymph % (Auto) 10.3 L (13.4-35.0) % [place] % (Auto) 11.8 H (0.0-7.3) % [place] # (Auto) 1.6 H (0.0-0.8) K/mm3 Seg Neutrophils % 77.5 H (40.0-70.0) % Seg Neutrophils # 10.6 H (1.8-7.7) K/mm3 C-Reactive Protein 31.70 H (0.00-1.30) mg/dL Short CBC 02/10/ Range/Units 07:27 WBC 13.7 H (4.5-11.0) K/mm3 Hgb 10.4 (10.1-14.3) gm/dl Hct 30.8 (30.3-42.9) % Plt Count 309 (140-440) K/mm3 CT of the abdomen Right tubo-ovarian abscess measuring 9 cm with significant surrounding inflammatory changes and fat stranding. Correlate for clinical history of pelvic infiltrative disease. Interval development of moderate bibasilar atelectasis. Chest x-ray Linear opacities right lung base may represent atelectasis versus infectious process given the patient's clinical history - Imaging and Cardiology CT scan - abdomen: report reviewed Assessment and Plan - Patient Problems (1) HIV (human immunodeficiency virus infection) Current Visit: Yes Status: Chronic Qualifiers: HIV symptom status: unspecified Qualified Code(s): B20 - Human immunodeficiency virus [HIV] disease Plan to address problem: Patient on Genvoya once a day Continue the same No contraindication (2) Right tubo-ovarian abscess Current Visit: Yes Status: Acute Plan to address problem: Deferred to [facility] and surgery IV antibiotics for now (3) Hypokalemia Current Visit: Yes Status: Acute Plan to address problem: Supplemented (4) DVT prophylaxis Current Visit: Yes Status: Acute Plan to address problem: On heparin and GI prophylaxis
[2021-02-11] MEDS: AMPICILLIN/NS 2 GM/100 ML 2 GM/100 ML BAG IV SCH ×2 (06:01→11:57)
[2021-02-11] MEDS: MORPHINE 4 MG/1 ML INJ IV PRN ×5 (07:53→20:26)
--- NOTE | 2021-02-11 07:56 | Progress Note ---
Assessment and Plan HD#4 TOA with worsening pain, afebrile at this time on triple antibiotics; HIV+; Cocaine abuse; currently NPO since midnight and oxygen sat remained>95% 1. I called the Interventional radiologist using the number received from the [employer]umina plant supervisor and spoke with him directly and he agrees to do the procedure this morning 2. Consents to be obtained by him 3. Pt agrees with this plan 4. Appreciate hospitalist team and recommendation, BMP received and will continue home HIV meds 5. Continue triple abx and repeat cbc to be done All questions encouraged and answered Subjective Date of service: 02/11/21 Principal diagnosis: HD#4 with TOA Interval history: pt writhing in pain lying on her right side and had not call the nurse for pain med. pt states her nausea has improved and she maintained NPO status. Objective - Constitutional Vitals: Vital Signs - 12hr 02/10/21 02/10/21 02/10/21 20:00 20:11 23:52 Temperature 98 F Pulse Rate 88 Respiratory 20 14 Rate Blood Pressure Blood Pressure 134/85 [Right] O2 Sat by Pulse 98 95 Oximetry 02/11/21 02/11/21 02/11/21 00:30 01:03 02:07 Temperature 99.8 F H Pulse Rate 100 H Respiratory 16 Rate Blood Pressure 122/64 Blood Pressure [Right] O2 Sat by Pulse 91 94 95 Oximetry 02/11/21 02/11/21 02/11/21 03:10 04:10 05:10 Temperature Pulse Rate Respiratory Rate Blood Pressure Blood Pressure [Right] O2 Sat by Pulse 96 96 98 Oximetry 02/11/21 05:33 Temperature 99.6 F Pulse Rate 89 Respiratory 18 Rate Blood Pressure 134/74 Blood Pressure [Right] O2 Sat by Pulse 97 Oximetry General appearance: Present: mild distress - Breasts Breasts: deferred Extremities: no ischemia - Gastrointestinal General gastrointestinal: Present: tender, normal bowel sounds - Psychiatric Psychiatric: cooperative - Labs CBC & Chem 7: 02/10/21 07:27 02/09/21 10:49 Labs: Abnormal lab results 02/10/21 02/10/21 Range/Units 07:27 07:27 WBC 13.7 H (4.5-11.0) K/mm3 RBC 3.34 L (3.65-5.03) M/mm3 RDW 12.5 L (13.2-15.2) % Lymph % (Auto) 10.3 L (13.4-35.0) % [place] % (Auto) 11.8 H (0.0-7.3) % [place] # (Auto) 1.6 H (0.0-0.8) K/mm3 Seg Neutrophils % 77.5 H (40.0-70.0) % Seg Neutrophils # 10.6 H (1.8-7.7) K/mm3 C-Reactive Protein 31.70 H (0.00-1.30) mg/dL Medications & Allergies - Medications Allergies/Adverse Reactions: Allergies ibuprofen Allergy (Verified 02/08/21 09:56) Swelling Home Medications: Home Medications Medication Instructions Recorded Confirmed Last Taken Type Genvoya Tablet 10 mg PO Q24HR 02/10/21 02/10/21 02/10/21 15:00 History 10 mg Active Medications: Generic Name Dose Route Start Last Admin Trade Name Freq PRN Reason Stop Dose Admin Acetaminophen 1,000 mg 02/08/21 14:00 02/10/21 05:31 Acetaminophen 500 Mg Tab PO 1,000 mg Q6H PRN Administration Fever >101 Hydrocodone Bitart/Acetaminophen 1 each 02/08/21 14:00 02/10/21 13:49 Hydrocodone/Acetaminophen 10-325mg Tab PO 1 each Q4H PRN Administration Pain, Moderate (4-6) Clindamycin HCl 900 mg in 50 mls @ 100 mls/hr 02/08/21 21:00 02/10/21 23:51 Cleocin 900 Mg/50 Ml IV 100 mls/hr Q8H CARMELITA Administration Protocol Gentamicin Sulfate/Sodium Chloride 100 mls @ 200 mls/hr 02/08/21 14:00 02/08/21 15:32 Gentamicin/Ns 80 Mg/100 Ml IV 200 mls/hr PKCONSULT CARMELITA Administration Protocol Dextrose/Lactated Ringer's 1,000 mls @ 125 mls/hr 02/08/21 14:00 02/10/21 23:51 D5lr IV 125 mls/hr DIRECT CARMELITA Administration Gentamicin Sulfate 400 mg/ 110 mls @ 200 mls/hr 02/09/21 10:00 02/10/21 10:14 Sodium Chloride IV 200 mls/hr Q24HR CARMELITA Administration Ampicillin Sodium 2 gm in 100 mls @ 100 mls/hr 02/10/21 17:00 02/11/21 06:01 Ampicillin/Ns 2 Gm/100 Ml IV 02/12/21 11:59 100 mls/hr Q6H [facility] Administration Protocol Miscellaneous Medication 10 mg 02/10/21 20:15 Genvoya Tablet PO Q24HR [facility] Morphine Sulfate 4 mg 02/08/21 14:00 02/10/21 20:11 Morphine 4 Mg/1 Ml Inj IV 4 mg Q4H PRN Administration Pain , Severe (7-10) Ondansetron HCl 8 mg 02/09/21 12:52 02/10/21 20:10 Ondansetron 4 Mg/2 Ml Inj IV 8 mg Q4H PRN Administration Nausea And Vomiting Potassium Chloride 20 meq 02/11/21 10:00 Potassium Chloride Er 20 Meq Tab PO QDAY [facility]
[2021-02-11 08:35] LABS: BUN/Creatinine Ratio 4; Blood Urea Nitrogen 4 mg/dL (7-17); Calcium 8.8 mg/dL (8.4-10.2); Hemolysis Index 0
--- NOTE | 2021-02-11 10:10 | Event Note ---
Date: 02/11/[address] Xiong for evaluation and possible drainage of a right TOA. A CT scan was reviewed which demonstrates that the abscess would be amenable to percutaneous drainage using CT guidance. Too deep for ultrasound-guided drainage. Unfortunately, CT techs and nurses are not available on the weekend. If the patient is unable to wait until Saturday for placement of a drainage catheter, would recommend transfer. Discussed this with Dr. Xiong.
[2021-02-11] MEDS: GENTAMICIN 400 MG in SODIUM CHLORIDE 0.9% 100 ML IV SCH (10:38)
[2021-02-11] MEDS: D5W/LACTATED RINGERS 1,000 ML IV SCH (10:55)
[2021-02-11] MEDS: GENVOYA PO SCH (11:12)
[2021-02-11 11:23] LABS: Hematocrit 30.2 % (30.3-42.9); Hemoglobin 10.6 gm/dl (10.1-14.3); Mean Corpuscular HGB Conc 35 % (30-34); Mean Corpuscular Volume 91 fl (79-97); Platelet Count 358 K/mm3 (140-440); Red Blood Count 3.31 M/mm3 (3.65-5.03); Red Cell Distribution Width 12.8 % (13.2-15.2)
[2021-02-11] MEDS: POTASSIUM CHLORIDE ER 20 MEQ TAB PO SCH (11:55)
[2021-02-11 12:21] LABS: Band Neutrophils # (Manual) 0.1 K/mm3; Total Cells Counted 100
[2021-02-11 12:22] LABS: Hypochromasia 1+; Platelet Estimate Consistent w Auto
--- NOTE | 2021-02-11 16:46 | Event Note ---
Date: 02/11/21 Discussed with pt transfer after report from Dr. Zeus Bunn. Pt agreeable to be transferred to [facility]. I discussed with Dr. Masterson at [facility] who accepted the patient and later called back stating [facility] too does not have CT guided drainage on the weekend, therefore there's no need to accept the transfer. The labs later reviewed continues to show improvement and pt stable and afebrile at this time. I also adjusted the morphine med at more frequent intervals. Dr. Bunn called back by me and told that the patient with remain in patient at [facility] and have the drainage done on Saturday. Dr. Leija, surgeon, also notified that CT guided approach is the preferred method with patient stable. Pt and partner also notified and patient agreeable.
[2021-02-11] MEDS: D5NS W/KCL 20 MEQ 20 MEQ/1,000 ML BAG IV SCH (18:00)
[2021-02-11 20:53] LABS: HIV-1 RNA QN PCR 1.47 Log cps/mL
[2021-02-12] MEDS: MORPHINE 4 MG/1 ML INJ IV PRN ×6 (01:32→22:08)
--- NOTE | 2021-02-12 07:46 | Progress Note ---
Assessment and Plan HD#5 right TOA on amp/gent/clinda now afebrile and adequate pain control with mild distention today and hypokalemia 1. Will change to liquid diet with mild distention noted this am and change morphine back to every 4hrs as needed 2. Will give MOM for constipation 3. NPO after mid-night for CT guided drainage by interventional radiology 4. Will repeat cmp/cbc and hypokalemia resolved, normal wbc and hgb stable; will continue potassium repletion in the IV 5. Continue amp/gent/clinda All questions encouraged and answered Subjective Date of service: 02/12/21 Principal diagnosis: HD#5 with TOA Interval history: pt states that her pain is controlled. pt admits to eating small amount of soft diet yesterday and denies nausea. Denies fever or chills. pt agreeable to have procedure with CT drainage in the morning. pt states she is voiding without difficulty. pt states she has not had a BM since admission. Objective - Constitutional Vitals: Vital Signs - 12hr 02/11/21 02/12/21 02/12/21 19:43 00:56 05:18 Temperature 98.7 F 98.8 F 98.3 F Pulse Rate 88 88 79 Respiratory 20 18 18 Rate Blood Pressure 121/70 105/70 115/74 O2 Sat by Pulse 100 93 96 Oximetry General appearance: Present: no acute distress - Neck Neck: normal ROM - Respiratory Respiratory effort: normal - Breasts Breasts: deferred - Cardiovascular Rhythm: regular Extremities: no ischemia - Gastrointestinal General gastrointestinal: Present: non-tender, hypoactive bowel sounds (mild distension) - Genitourinary Female genitourinary: deferred - Neurologic Neurologic: moves all extremities - Psychiatric Psychiatric: cooperative - Labs CBC & Chem 7: 02/12/21 07:34 02/12/21 07:34 Labs: Abnormal lab results 02/08/21 02/11/21 02/11/21 Range/Units 18:25 07:09 10:24 RBC 3.31 L (3.65-5.03) M/mm3 Hct 30.2 L (30.3-42.9) % MCHC 35 H (30-34) % RDW 12.8 L (13.2-15.2) % Monocytes % (Manual) 12.0 H (0.0-7.3) % Basophils % (Manual) 2.0 H (0.0-1.8) % Monocytes # (Manual) 1.2 H (0.0-0.8) K/mm3 Basophils # (Manual) 0.2 H (0.0-0.1) K/mm3 Sodium 135 L (137-145) mmol/L Potassium 3.3 L (3.6-5.0) mmol/L BUN 4 L (7-17) mg/dL Glucose 115 H (65-100) mg/dL HIV-1 RNA PCR copies/ml 30 H Copies/mL HIV-1 RNA (PCR) log 1.47 H Log cps/mL Medications & Allergies - Medications Allergies/Adverse Reactions: Allergies ibuprofen Allergy (Verified 02/08/21 09:56) Swelling Home Medications: Home Medications Medication Instructions Recorded Confirmed Last Taken Type Genvoya Tablet 10 mg PO Q24HR 02/10/21 02/10/21 02/10/21 15:00 History 10 mg Active Medications: Generic Name Dose Route Start Last Admin Trade Name Freq PRN Reason Stop Dose Admin Acetaminophen 1,000 mg 02/08/21 14:00 02/10/21 05:31 Acetaminophen 500 Mg Tab PO 1,000 mg Q6H PRN Administration Fever >101 Hydrocodone Bitart/Acetaminophen 1 each 02/08/21 14:00 02/10/21 13:49 Hydrocodone/Acetaminophen 10-325mg Tab PO 1 each Q4H PRN Administration Pain, Moderate (4-6) Clindamycin HCl 900 mg in 50 mls @ 100 mls/hr 02/08/21 21:00 02/11/21 20:26 Cleocin 900 Mg/50 Ml IV 100 mls/hr Q8H CARMELITA Administration Protocol Gentamicin Sulfate/Sodium Chloride 100 mls @ 200 mls/hr 02/08/21 14:00 02/08/21 15:32 Gentamicin/Ns 80 Mg/100 Ml IV 200 mls/hr PKCONSULT CARMELITA Administration Protocol Gentamicin Sulfate 400 mg/ 110 mls @ 200 mls/hr 02/09/21 10:00 02/11/21 10:38 Sodium Chloride IV 200 mls/hr Q24HR CARMELITA Administration Ampicillin Sodium 2 gm in 100 mls @ 100 mls/hr 02/10/21 17:00 02/11/21 11:57 Ampicillin/Ns 2 Gm/100 Ml IV 100 mls/hr Q6H CARMELITA Administration Protocol Potassium Chloride/Dextrose/Sod Cl 20 meq in 1,000 mls @ 125 mls/hr 02/11/21 17:00 02/11/21 18:00 D5w/Ns W/Kcl 20meq IV 125 mls/hr DIRECT CARMELITA Administration Magnesium Hydroxide 60 ml 02/12/21 08:00 Magnesium Hydroxide (Mom) Oral Liqd Udc PO 02/12/21 08:01 ONCE ONE Miscellaneous Medication 10 mg 02/10/21 20:15 02/11/21 11:12 Genvoya Tablet PO 10 mg Q24HR CARMELITA Administration Morphine Sulfate 4 mg 02/11/21 09:46 02/12/21 01:32 Morphine 4 Mg/1 Ml Inj IV 4 mg Q2H PRN Administration Pain , Severe (7-10) Ondansetron HCl 8 mg 02/09/21 12:52 02/10/21 20:10 Ondansetron 4 Mg/2 Ml Inj IV 8 mg Q4H PRN Administration Nausea And Vomiting Potassium Chloride 20 meq 02/11/21 10:00 02/11/21 11:55 Potassium Chloride Er 20 Meq Tab PO 20 meq QDAY CARMELITA Administration
[2021-02-12 08:00] LABS: Hematocrit 30.8 % (30.3-42.9); Hemoglobin 10.4 gm/dl (10.1-14.3); Mean Corpuscular HGB Conc 34 % (30-34); Mean Corpuscular Volume 91 fl (79-97); Platelet Count 407 K/mm3 (140-440); Red Blood Count 3.39 M/mm3 (3.65-5.03); Red Cell Distribution Width 12.7 % (13.2-15.2)
[2021-02-12] MEDS: D5NS W/KCL 20 MEQ 20 MEQ/1,000 ML BAG IV SCH ×2 (08:00→21:49)
[2021-02-12] MEDS ORDERED: MAGNESIUM HYDROXIDE (MOM) ORAL LIQD UDC PO ONE (08:00)
[2021-02-12 08:24] LABS: Alanine Aminotransferase 39 units/L (7-56); Albumin 3.1 g/dL (3.9-5); BUN/Creatinine Ratio 6; Blood Urea Nitrogen 5 mg/dL (7-17); Calcium 8.7 mg/dL (8.4-10.2); Hemolysis Index 2
--- NOTE | 2021-02-12 09:33 | Consultation ---
History of Present Illness - Reason for Consult Consult date: 02/12/21 Right TOA - History of Present Illness Patient with a history of right lower quadrant abdominal pain who initially was diagnosed with a hemorrhagic cyst. She subsequently returned to the hospital with repeat imaging which demonstrated a right tubo-ovarian abscess. At that time, the patient was developing sepsis. Additionally, she had vaginal discharge. The patient has been on IV antibiotics and at this time, the patient does not complaining of any systemic signs of infection. No fever or chills. The patient has a minimal amount of right lower quadrant abdominal pain however. Past History Past Medical History: HIV/AIDS Social history: Family history: hypertension Medications and Allergies Allergies Allergy/AdvReac Type Severity Reaction Status Date / Time ibuprofen Allergy Swelling Verified 02/08/21 09:56 Home Medications Medication Instructions Recorded Confirmed Last Taken Type Genvoya Tablet 10 mg PO Q24HR 02/10/21 02/10/21 02/10/21 15:00 History 10 mg Active Meds: Active Medications Acetaminophen (Acetaminophen 500 Mg Tab) 1,000 mg PO Q6H PRN PRN Reason: Fever >101 Last Admin: 02/10/21 05:31 Dose: 1,000 mg Documented by: Hydrocodone Bitart/Acetaminophen (Hydrocodone/Acetaminophen 10-325mg Tab) 1 each PO Q4H PRN PRN Reason: Pain, Moderate (4-6) Last Admin: 02/10/21 13:49 Dose: 1 each Documented by: Clindamycin HCl (Cleocin 900 Mg/50 Ml) 900 mg in 50 mls @ 100 mls/hr IV Q8H CARMELITA; Protocol Last Admin: 02/11/21 20:26 Dose: 100 mls/hr Documented by: Gentamicin Sulfate/Sodium Chloride (Gentamicin/Ns 80 Mg/100 Ml) 100 mls @ 200 mls/hr IV PKCONSULT CARMELITA; Protocol Last Admin: 02/08/21 15:32 Dose: 200 mls/hr Documented by: Gentamicin Sulfate 400 mg/ (Sodium Chloride) 110 mls @ 200 mls/hr IV Q24HR CARMELITA Last Admin: 02/11/21 10:38 Dose: 200 mls/hr Documented by: Ampicillin Sodium (Ampicillin/Ns 2 Gm/100 Ml) 2 gm in 100 mls @ 100 mls/hr IV Q6H CARMELITA; Protocol Last Admin: 02/11/21 11:57 Dose: 100 mls/hr Documented by: Potassium Chloride/Dextrose/Sod Cl (D5w/Ns W/Kcl 20meq) 20 meq in 1,000 mls @ 125 mls/hr IV DIRECT CARMELITA Last Admin: 02/12/21 08:00 Dose: 125 mls/hr Documented by: Miscellaneous Medication (Genvoya Tablet) 10 mg PO Q24HR CARMELITA Last Admin: 02/11/21 11:12 Dose: 10 mg Documented by: Morphine Sulfate (Morphine 4 Mg/1 Ml Inj) 4 mg IV Q2H PRN PRN Reason: Pain , Severe (7-10) Last Admin: 02/12/21 08:12 Dose: 4 mg Documented by: Ondansetron HCl (Ondansetron 4 Mg/2 Ml Inj) 8 mg IV Q4H PRN PRN Reason: Nausea And Vomiting Last Admin: 02/10/21 20:10 Dose: 8 mg Documented by: Potassium Chloride (Potassium Chloride Er 20 Meq Tab) 20 meq PO QDAY CARMELITA Last Admin: 02/11/21 11:55 Dose: 20 meq Documented by: Review of Systems All systems: negative Exam - Constitutional Vitals: Temp Pulse Resp BP Pulse Ox 98.1 F 79 18 127/67 96 02/12/21 07:36 02/12/21 05:18 02/12/21 07:36 02/12/21 07:36 02/12/21 05:18 General appearance: Present: no acute distress - EENT Eyes: Present: EOM intact ENT: hearing intact - Neck Neck: Present: supple - Respiratory Respiratory effort: normal - Abdominal General gastrointestinal: Present: deferred Female genitourinary: Present: deferred - Rectal Rectal Exam: deferred - Psychiatric Psychiatric: appropriate mood/affect, cooperative Results - Labs CBC & Chem 7: 02/12/21 07:34 02/12/21 07:34 Labs: Abnormal lab results 02/08/21 02/11/21 02/12/21 Range/Units 18:25 10:24 07:34 RBC 3.31 L (3.65-5.03) M/mm3 Hct 30.2 L (30.3-42.9) % MCHC 35 H (30-34) % RDW 12.8 L (13.2-15.2) % Monocytes % (Manual) 12.0 H (0.0-7.3) % Basophils % (Manual) 2.0 H (0.0-1.8) % Monocytes # (Manual) 1.2 H (0.0-0.8) K/mm3 Basophils # (Manual) 0.2 H (0.0-0.1) K/mm3 Sodium 136 L (137-145) mmol/L BUN 5 L (7-17) mg/dL Glucose 102 H (65-100) mg/dL Total Protein 6.1 L (6.3-8.2) g/dL Albumin 3.1 L (3.9-5) g/dL HIV-1 RNA PCR copies/ml 30 H Copies/mL HIV-1 RNA (PCR) log 1.47 H Log cps/mL 02/12/21 Range/Units 07:34 RBC 3.39 L (3.65-5.03) M/mm3 Hct (30.3-42.9) % MCHC (30-34) % RDW 12.7 L (13.2-15.2) % Monocytes % (Manual) (0.0-7.3) % Basophils % (Manual) (0.0-1.8) % Monocytes # (Manual) (0.0-0.8) K/mm3 Basophils # (Manual) (0.0-0.1) K/mm3 Sodium (137-145) mmol/L BUN (7-17) mg/dL Glucose (65-100) mg/dL Total Protein (6.3-8.2) g/dL Albumin (3.9-5) g/dL HIV-1 RNA PCR copies/ml Copies/mL HIV-1 RNA (PCR) log Log cps/mL - Imaging and Cardiology CT scan - abdomen: report reviewed, image reviewed Assessment and Plan Patient with right tubo-ovarian abscess. She is scheduled for CT-guided placement of drainage catheter tomorrow. All questions answered.
[2021-02-12] MEDS: GENVOYA PO SCH (09:44)
[2021-02-12] MEDS: POTASSIUM CHLORIDE ER 20 MEQ TAB PO SCH (09:45)
[2021-02-12] MEDS: GENTAMICIN 400 MG in SODIUM CHLORIDE 0.9% 100 ML IV SCH (09:45)
[2021-02-12 10:02] LABS: Total Cells Counted 100
[2021-02-12 10:03] LABS: Platelet Estimate Consistent w Auto; RBC Morphology Normal
[2021-02-12] MEDS: AMPICILLIN/NS 2 GM/100 ML 2 GM/100 ML BAG IV SCH ×2 (11:05→17:18)
--- NOTE | 2021-02-12 11:23 | Event Note ---
Date: 02/12/21 nurse notified me that pt had BM and same was loose; abd soft and Bowel sounds present. Will stop clindamycin and give flagyl. Nurse also told if pt has another stool send for eval for C.diff. If positive C.diff, the I will change IV flagyl to oral route.
[2021-02-12] MEDS: metroNIDAZOLE/NS 500 MG/100 ML 500 MG/100 ML BAG IV SCH ×2 (13:35→21:43)
--- NOTE | 2021-02-12 14:01 | Event Note ---
Date: 02/12/21 nurse called me stating pt wanted to leave AMA and return to have the surgery tomorrow for drainage of the abscess. Nurse allowed me to speak with patient via phone and lengthy conversation done about the risks and benefits and alternatives of remaining in the hospital to completely treat her problem. Pt told that I would prefer if she does not try to use anymore cocaine and have a safe procedure. Pt already has seen the radiologist today and pt after thought, stated OK she stay to have the procedure done. Nurse notified.
--- NOTE | 2021-02-12 15:20 | Event Note ---
Date: 02/12/[address] Summers with test for HIV-RNA PCR copies and log seen ordered earlier by Dr. Branch and physician states pt is known HIV and no further work up needed. Pt ok for the procedure and will follow up ID as out patient when discharged.
--- NOTE | 2021-02-12 20:41 | Progress Note ---
Assessment and Plan - Patient Problems (1) HIV (human immunodeficiency virus infection) Current Visit: Yes Status: Chronic Qualifiers: HIV symptom status: unspecified Qualified Code(s): B20 - Human immunodeficiency virus [HIV] disease Plan to address problem: Patient on Genvoya once a day Continue the same No contraindication No further work-up Discussed with Dr. Xiong HIV load and CD4/CD4 8 count as outpatient Patient is medically cleared for surgery Not immunocompromised (2) Right tubo-ovarian abscess Current Visit: Yes Status: Acute Plan to address problem: Right tubo-ovarian abscess drainage tomorrow (3) Hypokalemia Current Visit: Yes Status: Acute Plan to address problem: Supplemented (4) DVT prophylaxis Current Visit: Yes Status: Acute Plan to address problem: On heparin and GI prophylaxis Subjective Date of service: 02/12/21 Principal diagnosis: HD#5 with TOA Interval history: Patient with right tubo-ovarian abscess. She is scheduled for CT-guided placement of drainage catheter tomorrow. Objective - Constitutional Vitals: Vital Signs - 12hr 02/12/21 02/12/21 02/12/21 14:03 17:28 20:16 Temperature 98.5 F 98.0 F 97.6 F Pulse Rate 86 87 80 Respiratory 18 18 20 Rate Blood Pressure 132/78 123/74 124/85 O2 Sat by Pulse 94 98 98 Oximetry General appearance: Present: no acute distress, well-nourished - EENT Eyes: PERRL, EOM intact ENT: hearing intact, clear oral mucosa Ears: bilateral: normal - Neck Neck: supple, normal ROM - Respiratory Respiratory effort: normal Respiratory: bilateral: CTA - Breasts Breasts: normal - Cardiovascular Heart rate: 78 Rhythm: regular Heart Sounds: Present: S1 & S2. Absent: gallop, rub Extremities: pulses intact, No edema, normal color, Full ROM - Gastrointestinal General gastrointestinal: Present: soft, non-tender, non-distended, normal bowel sounds - Genitourinary Female genitourinary: normal - Integumentary Integumentary: clear, warm, dry - Musculoskeletal Musculoskeletal: 1, strength equal bilaterally - Neurologic Neurologic: moves all extremities - Psychiatric Psychiatric: memory intact, appropriate mood/affect, intact judgment & insight - Labs CBC & Chem 7: 02/12/21 07:34 02/12/21 07:34 Labs: Abnormal lab results 02/08/21 02/12/21 02/12/21 Range/Units 18:25 07:34 07:34 RBC 3.39 L (3.65-5.03) M/mm3 RDW 12.7 L (13.2-15.2) % Sodium 136 L (137-145) mmol/L BUN 5 L (7-17) mg/dL Glucose 102 H (65-100) mg/dL Total Protein 6.1 L (6.3-8.2) g/dL Albumin 3.1 L (3.9-5) g/dL HIV-1 RNA PCR copies/ml 30 H Copies/mL HIV-1 RNA (PCR) log 1.47 H Log cps/mL
[2021-02-13] MEDS: AMPICILLIN/NS 2 GM/100 ML 2 GM/100 ML BAG IV SCH ×5 (00:08→23:18)
[2021-02-13] MEDS: MORPHINE 4 MG/1 ML INJ IV PRN ×6 (02:06→18:40)
[2021-02-13] MEDS: metroNIDAZOLE/NS 500 MG/100 ML 500 MG/100 ML BAG IV SCH ×3 (05:17→20:23)
--- NOTE | 2021-02-13 09:11 | Progress Note ---
Subjective - Subjective Date of service: 02/13/21 Principal diagnosis: HD#5 with TOA Interval history: TOA afebrile tachycardia resolved pain improved NPO for IR drainage of abscess labs pending nos/s acute abdomen continue IV abx appreciate med consult Nestor Branch MD Objective - Vital Signs Latest vital signs: Vital Signs Temp Pulse Pulse Resp Resp BP BP 02/13/21 07:26 97.9 F 85 18 132/79 02/13/21 05:54 18 02/13/21 05:31 98.8 F 18 02/13/21 05:24 18 02/13/21 05:22 83 104/62 02/13/21 02:36 18 02/13/21 02:06 18 02/12/21 22:37 18 02/12/21 22:08 18 02/12/21 22:00 80 18 18 02/12/21 20:16 97.6 F 80 20 124/85 02/12/21 17:28 98.0 F 87 18 123/74 02/12/21 14:03 98.5 F 86 18 132/78 Pulse Ox 02/13/21 07:26 93 02/13/21 05:54 02/13/21 05:31 02/13/21 05:24 02/13/21 05:22 95 02/13/21 02:36 02/13/21 02:06 02/12/21 22:37 02/12/21 22:08 02/12/21 22:00 02/12/21 20:16 98 02/12/21 17:28 98 02/12/21 14:03 94 Intake and Output 02/12/21 02/13/21 02/13/21 23:59 07:59 15:59 Intake Total 1680 100 Balance 1680 100 Intake: IV 1200 100 AMPICILLIN/NS 2 GM/100 ML 100 100 2 gm In 100 ml @ 100 mls /hr IV Q6H CARMELITA Rx#: [id number] D5W/NS W/KCL 20MEQ 20 meq 1000 In 1,000 ml @ 125 mls/hr IV DIRECT CARMELITA Rx#: [id number] FLAGYL 500 MG/100 ML 500 100 mg In 100 ml @ 100 mls/hr IV Q8H CARMELITA Rx#:[id number] Oral 480 Other: Total, Intake Amount 480 Voiding Method Toilet Toilet # Voids Void 1 1 # Bowel Movements 1
[2021-02-13 09:35] LABS: Hematocrit 30.5 % (30.3-42.9); Hemoglobin 10.4 gm/dl (10.1-14.3); Mean Corpuscular HGB Conc 34 % (30-34); Mean Corpuscular Volume 93 fl (79-97); Platelet Count 437 K/mm3 (140-440); Red Blood Count 3.28 M/mm3 (3.65-5.03)
[2021-02-13 09:52] LABS: INR 1.14 (0.87-1.13)
[2021-02-13 09:53] LABS: Partial Thromboplastin Time 28.4 Sec. (24.2-36.6)
[2021-02-13] MEDS ORDERED: fentaNYL 100 MCG/2 ML INJ IV SCH (12:00)
[2021-02-13] MEDS ORDERED: MIDAZOLAM 5 MG/5 ML INJ MDV IV SCH (12:00)
[2021-02-13 12:17] LABS: Myelocytes # (Manual) 0.2 K/mm3; Total Cells Counted 100
[2021-02-13 12:25] LABS: Platelet Estimate Consistent w Auto; RBC Morphology Normal
--- NOTE | 2021-02-13 13:51 | Operative Report ---
Operative Report Operative Report: EXAM: CT guided right transgluteal 8 [place] APD drain placement CLINICAL INDICATION: Right-sided tubo-ovarian abscess DATE: 02/13/2021 RHEOLOGIST: MICHAELA JASON MD MEDICATIONS: Conscious sedation using Versed and fentanyl was performed under guidance of radiologic nursing. Continuous cardiopulmonary monitoring was utilized. PROCEDURE: Following an explanation of the risks, benefits and alternatives; written informed consent was obtained. The patient was brought to the CT suite and placed in the prone position on the CT table. [employer] CT was performed of the pelvis. After determining the appropriate site, the skin was infiltrated with lidocaine and a finder needle was placed. Intermittent CT was performed until the desired position was identified. The 18 gauge trocar needle was inserted through a right transgluteal approach into the right tubo-ovarian fluid collection. 0.035 inch wire was then passed into the fluid collection. Serial dilatation was performed. 8 [place] APD drain was then advanced over the wire and deployed in the fluid collection. Aspiration was performed and 50 mL of purulent material was removed. The drain was sutured with 2-0 silk. A uracil drainage bag was then applied. Sterile bandage was applied. The patient tolerated the procedure well. There were no immediate postprocedural complications. FINDINGS: 1. Initial CT demonstrates a fluid collection in the pelvis corresponding to the CT performed with contrast. There is a satisfactory window for CT drainage. 2. Intermittent CT demonstrates the 18 gauge needle was placed in the fluid collection. 3. 0.035 inch wire was coiled into the fluid collection 4. 8 [place] APD drain was deployed in the fluid collection. 5. A total of approximately 50 mL of purulent material as described above was aspirated through the needle and drain. IMPRESSION: Successful CT guided drainage of a pelvic tubo-ovarian fluid collection through a right transgluteal approach.
[2021-02-13] MEDS: D5NS W/KCL 20 MEQ 20 MEQ/1,000 ML BAG IV SCH (14:40)
[2021-02-13] MEDS: GENVOYA PO SCH (15:05)
[2021-02-13] MEDS: GENTAMICIN 400 MG in SODIUM CHLORIDE 0.9% 100 ML IV SCH (15:07)
[2021-02-13] MEDS: HYDROcodone/ACETAMINOPHEN 10-325MG TAB PO PRN (20:28)
[2021-02-14] MEDS: D5NS W/KCL 20 MEQ 20 MEQ/1,000 ML BAG IV SCH (01:19)
[2021-02-14] MEDS: HYDROcodone/ACETAMINOPHEN 10-325MG TAB PO PRN ×4 (03:58→21:59)
[2021-02-14] MEDS: metroNIDAZOLE/NS 500 MG/100 ML 500 MG/100 ML BAG IV SCH (04:44)
[2021-02-14 06:05] LABS: Hematocrit 32.9 % (30.3-42.9); Hemoglobin 11.1 gm/dl (10.1-14.3); Mean Corpuscular HGB Conc 34 % (30-34); Mean Corpuscular Volume 93 fl (79-97); Platelet Count 490 K/mm3 (140-440); Red Blood Count 3.54 M/mm3 (3.65-5.03); Red Cell Distribution Width 12.6 % (13.2-15.2)
[2021-02-14] MEDS: AMPICILLIN/NS 2 GM/100 ML 2 GM/100 ML BAG IV SCH ×2 (06:24→11:44)
[2021-02-14 07:26] LABS: Band Neutrophils # (Manual) 0.1 K/mm3; RBC Morphology Normal; Total Cells Counted 100
[2021-02-14 07:27] LABS: Platelet Estimate Consistent w Auto
[2021-02-14] MEDS: MORPHINE 4 MG/1 ML INJ IV PRN (07:50)
--- NOTE | 2021-02-14 09:35 | Progress Note ---
Assessment and Plan - Patient Problems (1) Polysubstance abuse Current Visit: Yes Status: Acute Plan to address problem: Patient reports positive cocaine 2/2 friend given her something for pain. Patient reports positive opiate 2/2 percocet given to her for pain associated with the cyst. Denies that she is a regular drug use. Case management consulted for resources. (2) Hypokalemia Current Visit: Yes Status: Acute Plan to address problem: --Repleted (3) Right tubo-ovarian abscess Current Visit: Yes Status: Acute Plan to address problem: Currently on Ampicillin IV, Gentamicin IV, Flagyl IV. Anticipate transition to doxycycline 100mg po BID x 14 days and flagyl 500mg po BID x 14 days 24H after procedure. Discharge on this regimen with outpatient follow up. --Case management consulted to outpatient drain management. Likely need outpatient IR referral for drain management. (4) HIV (human immunodeficiency virus infection) Current Visit: Yes Status: Chronic Qualifiers: HIV symptom status: unspecified Qualified Code(s): B20 - Human immunodeficiency virus [HIV] disease Plan to address problem: Continue on Genvoya Subjective - Subjective Date of service: 02/14/21 Principal diagnosis: HD#6 with TOA, POD1 s/p IR guide drainage of TOA Interval history: Patient reports that her pain is much improved and ready to go home. Tolerating po. Drain in place with origin at R gluteus. Urinating spontaneously. Pain well controlled. Regarding HIV, patient reports that she is complaint with HIV medications. Regarding polysubstance abuse, patient reports that she is not usually a drug user, including no MJ use. Patient reports that a friend have her cocaine for the pain. Patient reports that positive were because of percocet given to her for pain relief of the cyst. Patient reports wanting to be discharged because she has a plane to catch to [place] on . Patient reports: appetite normal, voiding normally, pain well controlled Objective - Vital Signs Latest vital signs: Vital Signs Temp Pulse Pulse Resp Resp BP BP 02/14/21 04:58 18 02/14/21 04:15 98.5 F 66 20 111/68 02/14/21 03:58 18 02/14/21 00:47 98.4 F 73 18 100/54 02/13/21 22:00 18 02/13/21 21:28 18 02/13/21 21:00 80 18 02/13/21 20:28 18 02/13/21 20:06 98.2 F 77 20 117/64 02/13/21 17:24 98.2 F 76 18 113/61 02/13/21 14:01 16 02/13/21 13:01 19 Pulse Ox 02/14/21 04:58 02/14/21 04:15 100 02/14/21 03:58 02/14/21 00:47 96 02/13/21 22:00 02/13/21 21:28 02/13/21 21:00 02/13/21 20:28 02/13/21 20:06 95 02/13/21 17:24 100 02/13/21 14:01 02/13/21 13:01 Intake and Output 02/13/21 02/14/21 02/14/21 23:59 07:59 15:59 Intake Total 1440 460 Output Total 35 Balance 1440 425 Intake: IV 1200 100 AMPICILLIN/NS 2 GM/100 ML 100 100 2 gm In 100 ml @ 100 mls /hr IV Q6H CARMELITA Rx#: [id number] D5W/NS W/KCL 20MEQ 20 meq 1000 In 1,000 ml @ 125 mls/hr IV DIRECT CARMELITA Rx#: [id number] FLAGYL 500 MG/100 ML 500 100 mg In 100 ml @ 100 mls/hr IV Q8H CARMELITA Rx#:[id number] Oral 240 360 Output: Drainage 35 Right Sacrum 35 Other: Total, Intake Amount 240 120 Total, Output Amount 35 Voiding Method Toilet # Voids Void 1 1 - Exam Cardiovascular: Present: Regular rate Lungs: Present: Clear to auscultation, Normal air movement Abdomen: Present: normal appearance. Absent: tenderness Extremities: Present: normal Comments: Right gluteus with drain producing ~10 cc purulent fluid, clean dressing. - Labs Labs: Abnormal lab results 02/13/21 02/13/21 02/14/21 Range/Units 09:23 09:23 04:10 RBC 3.28 L 3.54 L (3.65-5.03) M/mm3 RDW 13.0 L 12.6 L (13.2-15.2) % Plt Count 490 H (140-440) K/mm3 Monocytes % (Manual) 8.0 H 22.0 H (0.0-7.3) % Monocytes # (Manual) 2.1 H (0.0-0.8) K/mm3 INR 1.14 H (0.87-1.13)
[2021-02-14] MEDS: POTASSIUM CHLORIDE ER 20 MEQ TAB PO SCH ×2 (10:00→10:05)
[2021-02-14] MEDS: GENVOYA PO SCH (10:06)
--- NOTE | 2021-02-14 15:51 | Progress Note ---
Assessment and Plan (1) HIV (human immunodeficiency virus infection) Current Visit: Yes Status: Chronic Qualifiers: HIV symptom status: unspecified Qualified Code(s): B20 - Human immunodeficiency virus [HIV] disease Plan to address problem: Patient on Genvoya once a day Continue the same No contraindication No further work-up Discussed with Dr. Xiong HIV load and CD4/CD4 8 count as outpatient Patient is medically cleared for surgery Not immunocompromised (2) Right tubo-ovarian abscess Current Visit: Yes Status: Acute Plan to address problem: s/p Right tubo-ovarian abscess drainage by IR on 02/13 Continue current antibiotics and changed to p.o. on discharge Need outpatient drain management and referral to IR. (3) Hypokalemia Current Visit: Yes Status: Acute Plan to address problem: Supplemented (4) DVT prophylaxis Current Visit: Yes Status: Acute Plan to address problem: On heparin and GI prophylaxis Subjective Date of service: 02/14/21 Principal diagnosis: HD#6 with TOA, POD1 s/p IR guide drainage of TOA Interval history: Patient seen and examined. Medical records and medication list reviewed. No acute event overnight noted by the RN. Patient denies any chest pain or difficulty breathing. Patient is tolerating diet. States that abdominal pain much improved Discussed plan of care at bedside with patient. Objective - Exam Narrative Exam: General appearance: Present: no acute distress, well-nourished - EENT Eyes: PERRL, EOM intact ENT: hearing intact, clear oral mucosa Ears: bilateral: normal - Neck Neck: supple, normal ROM - Respiratory Respiratory effort: normal Respiratory: bilateral: CTA - Breasts Breasts: normal - Cardiovascular Heart rate: 78 Rhythm: regular Heart Sounds: Present: S1 & S2. Absent: gallop, rub Extremities: pulses intact, No edema, normal color, Full ROM - Gastrointestinal General gastrointestinal: Present: soft, non-tender, non-distended, normal bowel sounds - Genitourinary Female genitourinary: normal - Integumentary Integumentary: clear, warm, dry - Musculoskeletal Musculoskeletal: 1, strength equal bilaterally - Neurologic Neurologic: moves all extremities - Psychiatric Psychiatric: memory intact, appropriate mood/affect, intact judgment & insight - Constitutional Vitals: Vital Signs - 12hr 02/14/21 02/14/21 02/14/21 03:58 04:15 04:58 Temperature 98.5 F Pulse Rate 66 Respiratory 18 20 18 Rate Blood Pressure 111/68 O2 Sat by Pulse 100 Oximetry 02/14/21 02/14/21 02/14/21 07:54 08:00 13:55 Temperature 98.1 F 98.3 F Pulse Rate 68 74 Respiratory 18 16 18 Rate Blood Pressure 109/64 97/62 O2 Sat by Pulse 99 98 Oximetry - Labs CBC & Chem 7: 02/14/21 04:10 02/12/21 07:34 Labs: Abnormal lab results 02/14/21 Range/Units 04:10 RBC 3.54 L (3.65-5.03) M/mm3 RDW 12.6 L (13.2-15.2) % Plt Count 490 H (140-440) K/mm3 Monocytes % (Manual) 22.0 H (0.0-7.3) % Monocytes # (Manual) 2.1 H (0.0-0.8) K/mm3
[2021-02-14] MEDS: POTASSIUM CHLORIDE 20 MEQ in D5W/0.9% NACL 1,000 ML IV SCH ×2 (15:57→23:01)
[2021-02-14] MEDS ORDERED: metroNIDAZOLE 500 MG TAB PO SCH (22:00)
[2021-02-14] MEDS ORDERED: DOXYCYCLINE 100 MG CAP PO SCH (22:00)
[2021-02-15 06:19] LABS: Basophils # (Auto) 0.1 K/mm3 (0.0-0.1); Basophils % (Auto) 0.7 % (0.0-1.8); Eosinophils # (Auto) 0.1 K/mm3 (0.0-0.4); Eosinophils % (Auto) 1.5 % (0.0-4.3); Hematocrit 34.1 % (30.3-42.9); Hemoglobin 11.7 gm/dl (10.1-14.3); Lymphocytes # (Auto) 1.7 K/mm3 (1.2-5.4); Mean Corpuscular HGB Conc 34 % (30-34); Mean Corpuscular Volume 92 fl (79-97); Monocytes # (Auto) 1.1 K/mm3 (0.0-0.8); Monocytes % (Auto) 13.2 % (0.0-7.3); Platelet Count 514 K/mm3 (140-440); Red Blood Count 3.69 M/mm3 (3.65-5.03); Red Cell Distribution Width 12.9 % (13.2-15.2)
[2021-02-15 06:44] LABS: Alanine Aminotransferase 31 units/L (7-56); Albumin 3.6 g/dL (3.9-5); BUN/Creatinine Ratio 6; Blood Urea Nitrogen 5 mg/dL (7-17); Hemolysis Index 11
--- NOTE | 2021-02-15 09:16 | Progress Note ---
Subjective - Subjective Date of service: 02/15/21 Principal diagnosis: HD#6 with TOA, POD1 s/p IR guide drainage of TOA Interval history: TOA afebrile, NSR( tachcardia resolved) leukocytosis resolved no s/s acute abdomen continue PO abx for total of 14 days D/C to home after drain education Nestor Branch MD Objective - Vital Signs Latest vital signs: Vital Signs Temp Pulse Pulse Resp Resp BP BP 02/15/21 07:22 98.7 F 77 18 107/57 02/15/21 04:08 98.3 F 67 16 112/56 02/14/21 23:03 98.6 F 67 16 121/64 02/14/21 21:59 18 02/14/21 20:33 98.0 F 65 20 113/65 02/14/21 15:40 98.1 F 75 18 120/74 02/14/21 13:55 98.3 F 74 18 97/62 02/14/21 13:30 93 H 16 126/75 Pulse Ox Pulse Ox 02/15/21 07:22 97 02/15/21 04:08 99 02/14/21 23:03 100 02/14/21 21:59 02/14/21 20:33 98 02/14/21 15:40 100 02/14/21 13:55 98 02/14/21 13:30 100 Intake and Output 02/14/21 02/15/21 02/15/21 23:59 07:59 15:59 Intake Total 2183.333 300 Output Total 15 1800 Balance 2168.333 -1500 Intake: IV 883.333 KCl 20 Meq In D5ns 1,000 883.333 ml @ 125 mls/hr IV DIRECT CARMELITA Rx#:[id number] Oral 1300 300 Output: Drainage 15 0 Right Sacrum 15 0 Urine 1800 Void 1800 Other: Total, Intake Amount 100 100 Total, Output Amount 0 400 Voiding Method Toilet # Voids Void 1 - Labs Labs: Abnormal lab results 02/15/21 02/15/21 Range/Units 05:46 05:46 RDW 12.9 L (13.2-15.2) % Plt Count 514 H (140-440) K/mm3 Bates % (Auto) 13.2 H (0.0-7.3) % Bates # (Auto) 1.1 H (0.0-0.8) K/mm3 Sodium 135 L (137-145) mmol/L BUN 5 L (7-17) mg/dL Glucose 110 H (65-100) mg/dL Albumin 3.6 L (3.9-5) g/dL
--- NOTE | 2021-02-15 10:13 | Discharge Summary ---
Providers - Providers Date of Admission: 02/11/21 10:00 Date of discharge: 02/15/21 Attending physician: CATHLEEN MONROE MD 02/10/21 16:51 Consult to Physician [CONS] Routine Comment: Consulting Provider: HAYLIE TRISTAN Physician Instructions: Reason For Exam: HIV with tuboovarian abcess; HIV meds/mgt 02/10/21 18:16 Consult to Physician [CONS] Urgent Comment: Consulting Provider: DONI GAFFNEY Physician Instructions: Reason For Exam: tuboovarian abcess w/ h/o abd surg 02/14/21 08:40 Consult to Case Management [CONS] Routine Services Needed at Discharge: District Leader DME Equipment Notified:: yes Comment:: hx of + cocaine/opiates s/p IR guided drainage ob abscess, HIV pos Additional Physician Instructions: need outpatient management of LETTY drain (x 2 weeks), need polysubstance abuse outpt management, confirm outpt HIV management Primary care physician: PHARMACY ACCOUNT DIRECTOR Hospitalization Reason for admission: other (salpingitis) Pertinent studies: TOA with OR drainage stable sepsis resovled HIV stable D/ C to home with drain fup in 2 weeks Nestor Monroe MD Condition at discharge: Stable Disposition: DC-01 TO HOME OR SELFCARE Plan - Discharge Medications Prescriptions: Doxycycline Hyclate 100 mg PO BID 12 Days tablet. metroNIDAZOLE [Flagyl] 500 mg PO Q12HR #12 tab Ibuprofen [Motrin] 600 mg PO Q8H PRN #30 tablet PRN Reason: Pain oxyCODONE /ACETAMINOPHEN [Percocet 5/325] 1 tab PO Q4HR #20 tab - Provider Discharge Summary Additional instructions: [] Smoking cessation referral if applicable(refer to patient education folder for contact #) [] Refer to [facility] Booklet Call your doctor immediately for: * Fever > 100.5 * Heavy vaginal bleeding ( >1 pad per hour) * Severe persistent headache * Shortness of breath * Reddened, hot, painful area to leg or breast * Drainage or odor from incision. * Keep incision clean and dry at all times and follow doctor's instructions regarding bathing/showering - Follow up plan Follow up: PRIMARY CARE, [Primary Care Provider] - 3-5 Days CATHLEEN MONROE MD [Staff Physician] - 14 Days Forms: [facility] Discharge Summary
[2021-02-15 12:16] VITALS: BP 128/76
--- NOTE | 2021-02-15 22:38 | Progress Note ---
Assessment and Plan (1) HIV (human immunodeficiency virus infection) Current Visit: Yes Status: Chronic Qualifiers: HIV symptom status: unspecified Qualified Code(s): B20 - Human immunodeficiency virus [HIV] disease Plan to address problem: Patient on Genvoya once a day Continue the same No contraindication No further work-up Discussed with Dr. Xiong HIV load and CD4/CD4 8 count as outpatient Patient is medically cleared for surgery Not immunocompromised (2) Right tubo-ovarian abscess Current Visit: Yes Status: Acute Plan to address problem: s/p Right tubo-ovarian abscess drainage by IR on 02/13 Continue p.o. abx on discharge Need outpatient drain management and referral to IR. (3) Hypokalemia Current Visit: Yes Status: Acute Plan to address problem: Supplemented (4) DVT prophylaxis Current Visit: Yes Status: Acute Plan to address problem: On heparin and GI prophylaxis Subjective Date of service: 02/15/21 Principal diagnosis: HD#6 with TOA, POD1 s/p IR guide drainage of TOA Interval history: Patient seen and examined. Medical records and medication list reviewed. No acute event overnight noted by the RN. Patient denies any chest pain or difficulty breathing. Patient is tolerating diet. abdominal pain much improved Discussed plan of care at bedside with patient. Objective - Exam Narrative Exam: General appearance: Present: no acute distress, well-nourished - EENT Eyes: PERRL, EOM intact ENT: hearing intact, clear oral mucosa Ears: bilateral: normal - Neck Neck: supple, normal ROM - Respiratory Respiratory effort: normal Respiratory: bilateral: CTA - Breasts Breasts: normal - Cardiovascular Heart rate: 78 Rhythm: regular Heart Sounds: Present: S1 & S2. Absent: gallop, rub Extremities: pulses intact, No edema, normal color, Full ROM - Gastrointestinal General gastrointestinal: Present: soft, non-tender, non-distended, normal bowel sounds - Genitourinary Female genitourinary: normal - Integumentary Integumentary: clear, warm, dry - Musculoskeletal Musculoskeletal: 1, strength equal bilaterally - Neurologic Neurologic: moves all extremities - Psychiatric Psychiatric: memory intact, appropriate mood/affect, intact judgment & insight - Constitutional Vitals: Vital Signs - 12hr 02/15/21 11:03 Temperature 97.8 F Pulse Rate 94 H Respiratory 18 Rate Blood Pressure 128/76 O2 Sat by Pulse 88 Oximetry - Labs CBC & Chem 7: 02/15/21 05:46 02/15/21 05:46 Labs: Abnormal lab results 02/15/21 02/15/21 Range/Units 05:46 05:46 RDW 12.9 L (13.2-15.2) % Plt Count 514 H (140-440) K/mm3 [place] % (Auto) 13.2 H (0.0-7.3) % [place] # (Auto) 1.1 H (0.0-0.8) K/mm3 Sodium 135 L (137-145) mmol/L BUN 5 L (7-17) mg/dL Glucose 110 H (65-100) mg/dL Albumin 3.6 L (3.9-5) g/dL
== END 2021-02-15 11:15 | disposition home or self-care (01) | DRG 976 ==
LOC: ED 09:10 → OB 12:26 → OBSVTOIN 02-11 10:00
PROVIDERS: ADMIT Obstetrics & Gynecology; ATTEND Obstetrics & Gynecology
PROC: 0W9 Anatomical Regions, General, Drainage (ICD-10-PCS; principal; 2021-02-13)
PROC: 0W9 Anatomical Regions, General, Drainage (ICD-10-PCS; 2021-02-14)
DX: A41.9 Sepsis, unspecified organism (principal); B20 Human immunodeficiency virus [HIV] disease; N70.93 Salpingitis and oophoritis, unspecified; E87.6 Hypokalemia; F19.10 Other psychoactive substance abuse, uncomplicated; Z20.822 Contact with and (suspected) exposure to COVID-19; E11.9 Type 2 diabetes mellitus without complications; Z82.49 Family history of ischemic heart disease and other diseases of the circulatory system; Z79.899 Other long term (current) drug therapy; Z90.721 Acquired absence of ovaries, unilateral
CPT/HCPCS: 10160; 36415; 71045; 74177; 77012; 80048; 80053; 80170; 80307; 81001; 82140; 82805; 85007; 85025; 85610; 85652; 85730; 86140; 86803; 86850; 86900; 86901; 87040; 87045; 87076; 87086; 87116; 87186; 87210; 87536; 87591; 88112; 93005; 96365; 96375; G0378; C1769; J0290; J1580; J2250; J2270; J2405; J2543; J3010; J3480; J7040; J7042; J7121; Q9967; U0003